=== PATIENT | male | born 1955 | race Caucasian/White ===

== ENCOUNTER 2018-01-21 15:45 | Inpatient (IN) | payer MEDICARE ==
[2018-01-21 16:20] LABS: #Basophils 0.1 thou/uL (0.0-0.2); #Lymphocytes 1.6 thou/uL (1.20-3.40); #Monocytes 1.5 thou/uL (0.11-0.59); #Neutrophils 9.5 thou/uL (1.40-6.50); %Basophils 0.4 % (0.0-1.0); %Eosinophils 0.1 % (0.0-10.0); %Lymphocytes 12.6 % (21.0-51.0); %Neutrophils 74.9 % (42.0-75.0); Hemoglobin 13.8 g/dL (14.0-18.0); Mean Corpuscular HGB CONC 31.8 g/dL (32.0-36.0); Mean Corpuscular Hemoglobin 31.7 pg (27.0-31.0); Mean Corpuscular Volume 99.6 fL (78.0-98.0); Mean Platelet Volume 9.2 fL (7.4-10.4); Platelet Count 116 thou/uL (130-400); RBC Distribution Width 14.3 % (11.5-14.5); Red Blood Cell (RBC) Count 4.36 mill/uL (4.70-6.10); White Blood Cell (WBC) Count 12.7 thou/uL (4.8-10.8)
[2018-01-21 16:33] LABS: PLT Morphology Comment Appears Decreased; RBC Morphology Normal
[2018-01-21 16:42] LABS: ALT (SGPT) 44 U/L (8-55); AST (SGOT) 49 U/L (5-34); Albumin 3.3 g/dL (3.4-4.8); Alkaline Phosphatase 69 U/L (40-150); Anion Gap 10 mmol/L (10-20); BUN (Urea Nitrogen) 14 mg/dL (8.4-25.7); Bilirubin, Total 1.6 mg/dL (0.2-1.2); CK (CPK) 42 U/L (30-200); Calc. Creatinine Clearance 0 mL/min (70-130); Calcium 8.9 mg/dL (7.8-10.44); Carbon Dioxide 23 mmol/L (23-31); Chloride 105 mmol/L (98-107); Estimated GFR-MDRD Greater than 90; Globulin 3.7 g/dL (2.4-3.5); Glucose 96 mg/dL (80-115); Potassium 3.6 mmol/L (3.5-5.1); Sodium 134 mmol/L (136-145)
[2018-01-21 16:47] LABS: CKMB 1.8 ng/mL (0-6.6); Troponin I 0.084 ng/mL (< 0.028)
[2018-01-21] MEDS ORDERED: Enoxaparin Sodium 80 MG/0.8 ML SYRINGE ONE (17:18)
[2018-01-21] MEDS ORDERED: Furosemide 40 MG/4 ML VIAL ONE (17:18)
--- NOTE | 2018-01-21 18:04 | RAD ---
CHEST TWO VIEWS: HISTORY: Pain. COMPARISON: None. FINDINGS: Atherosclerosis of the aorta. The pulmonary vessels are normal. There are diffuse interstitial opac ities. Small bilateral effusions. No pneumothorax or osseous abnormalities. IMPRESSION: 1. Interstitial opacities due to edema or infiltrate. 2. Small bilateral effusions. POS: [facility]
[2018-01-21 20:14] LABS: Troponin I 0.073 ng/mL (< 0.028)
[2018-01-21 22:55] LABS: Troponin I 0.062 ng/mL (< 0.028)
[2018-01-22] MEDS ORDERED: Nitroglycerin 0.4 MG TAB (25 Tab Bottle) PO PRN (10:50)
[2018-01-22] MEDS ORDERED: Senokot 8.6 MG TAB PO PRN (10:50)
[2018-01-22] MEDS ORDERED: Mag-Al 1200 mg/1200 mg/30 ML UDCUP PO PRN (10:50)
[2018-01-22] MEDS ORDERED: Calcium Carbonate 500 MG ChewTAB PO PRN (10:50)
[2018-01-22 10:53] LABS: #Basophils 0.1 thou/uL (0.0-0.2); #Lymphocytes 1.5 thou/uL (1.20-3.40); #Monocytes 1.3 thou/uL (0.11-0.59); #Neutrophils 7.5 thou/uL (1.40-6.50); %Basophils 0.7 % (0.0-1.0); %Eosinophils 0.2 % (0.0-10.0); %Lymphocytes 14.5 % (21.0-51.0); %Monocytes 12.3 % (0.0-10.0); %Neutrophils 72.3 % (42.0-75.0); Hemoglobin 15.1 g/dL (14.0-18.0); Mean Corpuscular HGB CONC 32.3 g/dL (32.0-36.0); Mean Corpuscular Hemoglobin 32.3 pg (27.0-31.0); Mean Platelet Volume 9.5 fL (7.4-10.4); Platelet Count 134 thou/uL (130-400); RBC Distribution Width 13.9 % (11.5-14.5); Red Blood Cell (RBC) Count 4.67 mill/uL (4.70-6.10); White Blood Cell (WBC) Count 10.4 thou/uL (4.8-10.8)
[2018-01-22] MEDS ORDERED: cloNIDine 0.1 MG TAB PO PRN (10:53)
[2018-01-22] MEDS ORDERED: cefTRIAXone\\ROCEPHIN 2 GM in Sodium Chloride 0.9% 100 ML IVPB SCH (11:00)
[2018-01-22] MEDS ORDERED: Clopidogrel Bisulfate 75 MG TAB PO SCH (11:00)
[2018-01-22] MEDS ORDERED: Aspirin 81 mg Enteric Coated Tablet PO SCH (11:00)
[2018-01-22 11:08] LABS: ALT (SGPT) 40 U/L (8-55); AST (SGOT) 43 U/L (5-34); Albumin 3.4 g/dL (3.4-4.8); Alkaline Phosphatase 72 U/L (40-150); Anion Gap 12 mmol/L (10-20); BUN (Urea Nitrogen) 17 mg/dL (8.4-25.7); Bilirubin, Total 1.9 mg/dL (0.2-1.2); Calc. Creatinine Clearance 108 mL/min (70-130); Carbon Dioxide 25 mmol/L (23-31); Chloride 104 mmol/L (98-107); Estimated GFR-MDRD Greater than 90; Glucose 97 mg/dL (80-115); Magnesium 1.9 mg/dL (1.6-2.6); Potassium 4.3 mmol/L (3.5-5.1); Protein, Total 7.4 g/dL (5.8-8.1); Sodium 137 mmol/L (136-145)
--- NOTE | 2018-01-22 11:12 | HP ---
DATE OF ADMISSION: 01/22/2018 PRIMARY CARE PHYSICIAN: [facility] in [place]. PRIMARY BINDING PRINTER: None. CHIEF COMPLAINT: Chest discomfort. HISTORY OF PRESENT ILLNESS: Patient is a 62-year-old male with coronary artery disease, status post VA in 2013, presented to the emergency room with chest discomfort that started yesterday while he was at home. Please note that patient is a poor historian and history was obtained from the sister, Tory talley, over the phone. The pain was pressure-like, 5/10, located in the left upper chest. No aggravati ng or relieving factor reported. He was also found to have fever of 101 along with fever and product noemi cough for the last week or so. His EKG showed sinus rhythm with some nonspecific ST-T-wave ortez es in the lateral leads. He received 1 mg/kg of Lovenox and Lasix in the emergency room. He also re ceived aspirin prior to ER arrival. PAST MEDICAL HISTORY: 1. Coronary artery disease, status post VA in 2013. He was incarcerated at that time. He had a car diac catheterization with questionable stent placement at [facility]. He also had a TIA during the above e pisode per sister. 2. Anxiety, depression, panic attacks. PAST SURGICAL HISTORY: 1. Right shoulder surgery. 2. Cardiac catheterization. ALLERGIES: No known drug allergies. CURRENT HOME MEDICATIONS: Plavix 75 mg daily; lisinopril daily, dose of lisinopril unclear. Family to bring the accurate list of medication. FAMILY HISTORY: Positive for premature coronary artery disease. Father had bypass in his 50s. SOCIAL HISTORY: He chews tobacco. He quit drinking. He lives at home with his sister. He was rele ased from the senior living 2 years ago. He had an VA in 2013 while he was incarcerated. REVIEW OF SYSTEMS: Cannot be reliably obtained from the patient due to current cognitive status. PHYSICAL EXAMINATION: VITAL SIGNS: In the emergency room, temperature 100.2, respirations 23, pulse rate of 62, blood pres sure of 119/73 with O2 saturation 94% on room air. GENERAL: This is a 62-year-old male in no apparent distress. HEENT: Head atraumatic and normocephalic. Sclerae are anicteric. Moist mucous membranes. NECK: Supple, no JVD, no carotid bruit. LUNGS: Showed scattered rales at bases. No wheezing or rhonchi. Lungs were symmetrical. HEART: S1 and S2 present. Regular rate and rhythm. No murmur, rubs, or gallops appreciated. ABDOMEN: Soft, nontender, bowel sounds present. EXTREMITIES: No edema or calf tenderness. NEUROLOGIC: At baseline. Power was 5/5 in all extremities. Neurological examination is grossly non focal. PSYCHIATRY: The patient is alert and awake; however, has cognitive issues as discussed above. SKIN: Warm and dry. LYMPH NODES: No palpable lymph nodes in the neck. PERIPHERAL VASCULAR: Radial pulses palpable bilaterally. MUSCULOSKELETAL: No joint swelling or tenderness. LABORATORY FINDINGS: WBC 12.7 with hemoglobin 13.8, hematocrit 43.5, platelets 116, lymphocyte of 12 .6, monocyte of 12. Chemistries showed sodium 134, potassium 3.6, chloride 105, bicarbonate 23, BUN 14, creatinine 0.67, glucose of 96, total bilirubin 1.6, AST 49, ALT 44, alkaline phosphatase 69. Tr oponins in the indeterminate range at 0.084 with normal CK-MB. BNP 2166. Albumin 3.3. Chest x-ray, by my review, showed questionable infiltrate at bilateral bases with small bilateral effusion. EKG, by my review, as discussed above. IMPRESSION: 1. Chest discomfort, multifactorial. 2. Sepsis, probably secondary to community-acquired pneumonia. 3. Coronary artery disease, status post cardiac catheterization in 2013 at [facility]. It is unclear whet her he had stent placement over there. 4. Anxiety, depression, and panic attacks. 5. Elevated troponins in the indeterminate range, probably secondary to congestive heart failure. 6. Congestive heart failure. 7. Abnormal liver function tests of unclear etiology, possibilities include passive hepatic congesti on versus due to alcoholism in the past. 8. Hyponatremia. 9. Mild anemia, probably chronic. 10. Thrombocytopenia. PLAN: The patient will be monitored on the telemetry unit. Echocardiogram will be obtained. We liz l continue Plavix with low-dose of aspirin. We will try to obtain records from [facility]. Blood cultures will be done. We will start him on empiric antibiotics. We will repeat chest x-ray in a.m. The yanelis graham is currently n.p.o. for Cardiology consultation. Plan of care was discussed with the patient and the sister over the phone.
[2018-01-22] MEDS: Doxycycline 100 MG CAP PO SCH ×2 (11:40→20:12)
[2018-01-22] MEDS: Acetaminophen 325 MG TAB PO PRN (11:47)
[2018-01-22 13:13] LABS: Lactic Acid 1.3 mmol/L (0.5-2.2)
[2018-01-22] MEDS ORDERED: Communication Order-Pharmacy FS SCH (13:15)
[2018-01-22 13:16] LABS: INR-International Normal Ratio 1.2; PTT 30.8 SEC (22.9-36.1)
[2018-01-22] MEDS ORDERED: Lidocaine 1% (PF) 30 ML VIAL ONE (13:19)
[2018-01-22] MEDS ORDERED: Fentanyl 100 MCG/2 ML VIAL ONE (13:31)
[2018-01-22] MEDS ORDERED: Midazolam HCl 2 mg/2 ml Vial ONE (13:31)
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
[2018-01-22] MEDS ORDERED: Nitroglycerin 0.4 MG TAB (25 Tab Bottle) SL PRN (14:27)
[2018-01-22] MEDS ORDERED: Acetaminophen/Codeine 30-300mg Tablet PO PRN ×2 (14:27)
[2018-01-22] MEDS ORDERED: traMADol HCl 50 MG TAB PO PRN (14:27)
[2018-01-22] MEDS ORDERED: Sodium Chloride 0.9% 200 ML IV PRN (14:30)
[2018-01-22] MEDS ORDERED: Iopamidol 370 76% 100 ML VIAL ONE (15:12)
[2018-01-22 17:52] LABS: Bilirubin Small (Negative); Blood, Urine Negative (Negative); Clarity CLEAR (Clear); Glucose, Urine (Dipstick) Negative (Negative); Leukocyte Trace (Negative); Nitrite Negative (Negative); Protein, Urine (Dipstick) Trace mg/dL (Neg-Trace)
[2018-01-22 17:54] LABS: Bacteria/HPF None Seen HPF (None Seen); Hyaline Casts/LPF 0-3 HYALINE CAST LPF (0-3 Hyaline); Squamous Epithelial 0-3 HPF (0-3); WBC/HPF 0-3 HPF (0-3)
[2018-01-22 17:58] LABS: Specific Gravity, Urine 1.052 (1.002-1.036)
[2018-01-22] MEDS: Carvedilol 3.125 MG TAB PO SCH (18:56)
[2018-01-22] MEDS: Famotidine 20 MG TAB PO SCH (20:12)
[2018-01-22] MEDS: Docusate 100 MG CAP PO SCH (20:12)
[2018-01-22] MEDS: Lisinopril 5 MG TAB PO SCH (20:13)
[2018-01-22] MEDS ORDERED: Furosemide 40 MG/4 ML VIAL ONE ×2 (22:23→22:51)
[2018-01-22] MEDS ORDERED: Nitroglycerin 2% Ointment 1 INCH/1 GM Packet ONE (22:25)
[2018-01-22] MEDS ORDERED: Morphine 2 MG/ML SYRINGE SLOW IVP SCH ×2 (22:30→22:45)
[2018-01-22] MEDS ORDERED: Nitroglycerin 50 MG/250 ML BOT 250 ML ONE (22:34)
[2018-01-22 22:55] LABS: Actual Bicarbonate (HCO3a) 18.4 mEq/L (22-28); Base Excess (BEa) -8.6 mEq/L (-2.0 to +3.0); CO2 Tension 43.5 mmHg (35.0-45.0); Calcium, Ionized 1.17 mmol/L (1.12-1.30); Hemoglobin (Hb) 15.9 g/dL (14.0-18.0); O2 Tension (PaO2) 82.4 mmHg (> 80.0); Potassium - ABG Lab 4.31 mmol/L (3.70-5.30)
[2018-01-22 22:58] LABS: Puncture Site RRA; pH, Arterial 7.25 (7.35-7.45)
--- NOTE | 2018-01-22 22:58 | RAD ---
RADIOGRAPH CHEST 1 VIEW: Date: 01/22/18 Time: 10:47 p.m. HISTORY: 62-year-old male with "flash pulmonary edema." COMPARISON: 01/21/18, 4:17 p.m. FINDINGS: The previously demonstrated bilateral pulmonary interstitial densities have become more dense, and ar e now alveolar densities involving the upper and lower lobes. There is sparing of the peripheries of the lungs. There is no cardiomegaly. No pneumothorax. IMPRESSION: Interval worsening of pulmonary interstitial edema, now noncardiogenic pulmonary alveolar edema. JN [] POS: [facility]
[2018-01-22 22:59] LABS: ALV-art Gradient 576.225 (0-20)
[2018-01-22] MEDS ORDERED: Furosemide 40 MG/4 ML VIAL SLOW IVP SCH (23:00)
[2018-01-22] MEDS ORDERED: Amiodarone HCl 450 MG, Admixture Fee 1 EACH in Dextrose 5% in Water 250 ML IVPB SCH (23:15)
[2018-01-22] MEDS ORDERED: Propofol 1,000 MG/100 ML VIAL IV ONE (23:23)
[2018-01-22] MEDS ORDERED: Amiodarone HCl 150 MG, Admixture Fee 1 EACH in Dextrose 5% in Water 100 ML IVPB SCH (23:30)
[2018-01-22] MEDS: Midazolam HCl 2 mg/2 ml Vial ONE ×3 (23:35→23:37)
--- NOTE | 2018-01-22 23:35 | PDOC.EVN ---
Event Note - Event Note Event Note: code green activated, since pt was found in severe respiratory distress, possible flash pulmonary edema, pt has very depressed LVF=15%, treated with lasix, nitro drip, morphine, bipap. pt continued to deteriorate with worsening mental status, decision for intubation was done, case discussed with Dr Vale and Dr Childress, we will follow rec's. possible flutter present on ekg will add amio . Please see code sheet for details. questionable for underlying infection in the cxr, pt, will continue coverage empirically for now, procalcitonin ordered.
[2018-01-22] MEDS ORDERED: Vecuronium 10 MG VIAL ONE ×2 (23:44→23:47)
[2018-01-23 00:10] LABS: Actual Bicarbonate (HCO3a) 20.7 mEq/L (22-28); Calcium, Ionized 1.14 mmol/L (1.12-1.30); Carboxyhemoglobin (COHb) 1.3 gm% (0.0-3.0); Hemoglobin (Hb) 15.7 g/dL (14.0-18.0); O2 Tension (PaO2) 63.4 mmHg (> 80.0); Potassium - ABG Lab 3.98 mmol/L (3.70-5.30); pH, Arterial 7.28 (7.35-7.45)
--- NOTE | 2018-01-23 00:22 | PDOC.EVN ---
Event Note - Event Note Event Note: cxr reviewed central line will need repositioning. ET/OGT in right position, pt with significant pulmonary edema developed high grade fever>102, likely a component of non cardiogenic pulmonary edema from pna on top of known severely depressed LVF, HR has come down after sedation, sinus tachy likely due to sepsis , will hold on amio for now.
[2018-01-23 00:37] LABS: #Basophils 0.1 thou/uL (0.0-0.2); #Eosinphils 0.1 thou/uL (0.0-0.7); #Lymphocytes 2.3 thou/uL (1.20-3.40); #Monocytes 1.8 thou/uL (0.11-0.59); #Neutrophils 12.6 thou/uL (1.40-6.50); %Basophils 0.4 % (0.0-1.0); %Eosinophils 0.5 % (0.0-10.0); %Lymphocytes 13.6 % (21.0-51.0); %Monocytes 10.6 % (0.0-10.0); %Neutrophils 74.9 % (42.0-75.0); Hemoglobin 16.1 g/dL (14.0-18.0); Mean Corpuscular HGB CONC 32.2 g/dL (32.0-36.0); Mean Corpuscular Hemoglobin 32.9 pg (27.0-31.0); Platelet Count 211 thou/uL (130-400); RBC Distribution Width 14.4 % (11.5-14.5); White Blood Cell (WBC) Count 16.8 thou/uL (4.8-10.8)
[2018-01-23] MEDS ORDERED: Vancomycin HCl 1.5 GM in Sodium Chloride 0.9% 250 ML 300 ML IVPB SCH (00:45)
[2018-01-23] MEDS ORDERED: Sodium Chloride 0.9% 1,000 ML IV SCH (00:45)
[2018-01-23] MEDS: Piperacillin/Tazobactam 3.375 GM in Sodium Chloride 0.9% 100 ML IVPB SCH ×5 (00:46→23:42)
[2018-01-23 00:49] LABS: Anion Gap 15 mmol/L (10-20); BUN (Urea Nitrogen) 18 mg/dL (8.4-25.7); Calc. Creatinine Clearance 106 mL/min (70-130); Calcium 9.1 mg/dL (7.8-10.44); Carbon Dioxide 20 mmol/L (23-31); Chloride 105 mmol/L (98-107); Estimated GFR-MDRD Greater than 90; Glucose 95 mg/dL (80-115); Potassium 4.1 mmol/L (3.5-5.1); Sodium 136 mmol/L (136-145)
[2018-01-23] MEDS ORDERED: Fentanyl BOLUS 250 ML IVPB PRN (03:51)
[2018-01-23] MEDS ORDERED: fentaNYL Citrate/PF 2,000 MCG in Sodium Chloride 0.9% 60 ML IV SCH (03:51)
[2018-01-23] MEDS ORDERED: DISCONTINUE PREVIOUS NARCOTIC PAIN MEDICATIONS AND BENZODIAZEPINES FS SCH (03:51)
[2018-01-23] MEDS ORDERED: Lorazepam 2 MG/ML VIAL SLOW IVP PRN (03:51)
[2018-01-23] MEDS ORDERED: Propofol BOLUS 1,000 MG/100 ML VIAL IV PRN (03:51)
[2018-01-23] MEDS ORDERED: Propofol 1,000 MG/100 ML VIAL IV PRN (03:51)
[2018-01-23 04:03] LABS: #Monocytes 1.5 thou/uL (0.11-0.59); #Neutrophils 14.8 thou/uL (1.40-6.50); %Basophils 0.2 % (0.0-1.0); %Eosinophils 0.1 % (0.0-10.0); %Lymphocytes 5.8 % (21.0-51.0); %Monocytes 8.8 % (0.0-10.0); %Neutrophils 85.1 % (42.0-75.0); Hemoglobin 13.7 g/dL (14.0-18.0); Mean Corpuscular HGB CONC 32.3 g/dL (32.0-36.0); Mean Corpuscular Hemoglobin 32.2 pg (27.0-31.0); Mean Corpuscular Volume 99.9 fL (78.0-98.0); Mean Platelet Volume 9.9 fL (7.4-10.4); Platelet Count 158 thou/uL (130-400); RBC Distribution Width 13.9 % (11.5-14.5); Red Blood Cell (RBC) Count 4.26 mill/uL (4.70-6.10); White Blood Cell (WBC) Count 17.4 thou/uL (4.8-10.8)
[2018-01-23 04:25] LABS: ALT (SGPT) 32 U/L (8-55); AST (SGOT) 47 U/L (5-34); Albumin 2.9 g/dL (3.4-4.8); Alkaline Phosphatase 59 U/L (40-150); Anion Gap 12 mmol/L (10-20); BUN (Urea Nitrogen) 21 mg/dL (8.4-25.7); Bilirubin, Total 1.7 mg/dL (0.2-1.2); Calc. Creatinine Clearance 104 mL/min (70-130); Calcium 8.3 mg/dL (7.8-10.44); Carbon Dioxide 22 mmol/L (23-31); Chloride 105 mmol/L (98-107); Estimated GFR-MDRD Greater than 90; Globulin 3.4 g/dL (2.4-3.5); Glucose 96 mg/dL (80-115); Magnesium 1.4 mg/dL (1.6-2.6); Potassium 3.5 mmol/L (3.5-5.1); Protein, Total 6.3 g/dL (5.8-8.1); Sodium 135 mmol/L (136-145)
[2018-01-23 06:14] LABS: Lactic Acid 1.2 mmol/L (0.5-2.2)
[2018-01-23 06:33] LABS: Actual Bicarbonate (HCO3a) 19.6 mEq/L (22-28); Base Excess (BEa) -3.7 mEq/L (-2.0 to +3.0); CO2 Tension 30.7 mmHg (35.0-45.0); Calcium, Ionized 1.12 mmol/L (1.12-1.30); Hemoglobin (Hb) 13.9 g/dL (14.0-18.0); O2 Tension (PaO2) 94.6 mmHg (> 80.0); Potassium - ABG Lab 3.43 mmol/L (3.70-5.30); pH, Arterial 7.42 (7.35-7.45)
[2018-01-23 06:34] LABS: Puncture Site RRA
[2018-01-23 06:35] LABS: ALV-art Gradient 223.525 (0-20)
--- NOTE | 2018-01-23 07:20 | RAD ---
RADIOGRAPH CHEST 1 VIEW: Date: 01/22/18 Time: 2358 HOURS HISTORY: 62-year-old male with flash pulmonary edema. Status post intubation. COMPARISON: 01/22/18 at 2247 hours. FINDINGS: There has been interval placement of an endotracheal tube, with distal tip at the upper-mid thoracic trachea, 6.5 cm superior to the walter. There has been interval placement of a left subclavian centra l venous catheter which ascends the left side of the neck, and the distal portion is outside of the f ield of view. This is a supine image, which would be insensitive for pneumothorax detection. The prev iously demonstrated bilateral centrally dominant air space densities consistent with pulmonary edema have become more dense now during the short interval. There is a new finding of consolidation of the retrocardiac portion of the left lower lobe, and indistinctness of the left hemidiaphragm. IMPRESSION: 1. Status post intubation with endotracheal tube. 2. Status post left subclavian central vascular catheter placement which ascends the left neck. 3. Interval worsening of noncardiogenic pulmonary alveolar edema. 4. Interval development of consolidation of left lower lobe. This could be part of the pulmonary jany ma, but other possibilities include left lower lobe atelectasis or aspiration. GIOVANNI [] POS: [facility]
--- NOTE | 2018-01-23 07:24 | PDOC.PULCN ---
Pulmonology Consult: HPI - Date of Consult Date: 01/23/18 Time: 07:00 - Consult Details Reason for Consult: Intubation Requesting Physician: Dr. Angel - History of Present Illness HPI: FLORINDA WEINSTEIN is a 62 year-old Male that was intubated due to suspected pulmonary edema. Patient is intubated and no family is available at time of interview. Patient was able to shake his head "yes" or "no" to questions. Patient states that he is not having chest pain currently. He denies any other pain symptoms. Patient states he was having trouble breathing last night. Patient states that he was able to get some rest. Patient's nurse states that when he is adequately sedated that he does well. Patient denies any other problems at this time. Pulmonology Consult: ROS - Review of Systems ROS unobtainable: due to endotracheal tube Constitutional: negative: fever, chills Cardiovascular: negative: chest pain, palpitations Respiratory: negative: no reported symptoms Pulmonology Consult: PMH Source: patient Past Medical History: PMH: CAD s/p PA 2013, TIA, Anxiety, Depression PSH: Right Shoulder Surgery, Cardiac Catheterization - Family History Pertinent family history: Father had PA and bypass surgery in 50s - Social History Smoking Status: Former smoker, Other (Chewing tobacco currently) Alcohol Use: none Drug Use History: none Living Situation: independent, with family/parents Pulmonology Consult: Meds - Medications MAR Reviewed: Yes Medications: Current Medications Acetaminophen (Tylenol) 325 mg PO Q6H PRN PRN Reason: Headache/Fever or Pain Last Admin: 01/22/18 11:47 Dose: 325 mg Al Hydroxide/Mg Hydroxide (Maalox) 30 ml PO Q6H PRN PRN Reason: Heartburn or Indigestion Aspirin (Ecotrin) 81 mg PO DAILY [facility] Calcium Carbonate (Tums) 1,000 mg PO Q4H PRN PRN Reason: Heartburn or Indigestion Carvedilol (Coreg) 3.125 mg PO BID-[facility] Last Admin: 01/22/18 18:56 Dose: 3.125 mg Clonidine (Catapres) 0.1 mg PO Q4H PRN PRN Reason: Systolic BP > 180 [facility] [place]ocus[place] Sodium (Colace) 100 mg PO BID [facility] Last Admin: 01/22/18 20:12 Dose: Not Given Doxycycline Hyclate (Vibramycin) 100 mg PO BID [facility] Last Admin: 01/22/18 20:12 Dose: 100 mg Famotidine (Pepcid) 20 mg PO BID [facility] Last Admin: 01/22/18 20:12 Dose: 20 mg Piperacillin Sod/Tazobactam (Sod 3.375 gm/ Sodium Chloride) 100 mls @ 200 mls/ hr IVPB Q6HR [facility] Last Admin: 01/23/18 05:43 Dose: 100 mls Sodium Chloride (Normal Saline 0.9%) 1,000 mls @ 75 mls/hr IV .[id number] [facility] Last Admin: 01/23/18 00:50 Dose: 1,000 mls Vancomycin HCl 1 gm/ Device 200 mls @ 200 mls/hr IVPB 0200,1000,1800 [facility] Fentanyl Citrate 2,000 mcg/ (Sodium Chloride) 100 mls @ 0 mls/hr IV INF [facility]; Protocol Stop: 02/22/18 03:51 Last Admin: 01/23/18 04:00 Dose: 100 mls Fentanyl Citrate (Fentanyl Bolus) 250 mls @ 0 mls/hr IVPB PRN PRN PRN Reason: Breakthrough pain/agitation Stop: 02/22/18 03:51 Lisinopril (Zestril) 5 mg PO BID [facility] Last Admin: 01/22/18 20:13 Dose: 5 mg Lorazepam (Ativan) 2 mg SLOW IVP Q1H PRN PRN Reason: Breakthrough agitation Stop: 02/22/18 03:51 Miscellaneous Medication (Pharmacy To Dose) 0 each IVPB PRN PRN PRN Reason: [facility] Pharmacy to Dose Morphine Sulfate (Morphine Sulfate) 2 mg SLOW IVP Q1H PRN PRN Reason: BREAKTHROUGH PAIN/AGITATION Stop: 02/22/18 03:51 Nitroglycerin (Nitrostat) 0.4 mg SL Q5MIN PRN PRN Reason: Chest Pain Discontinue Previous Narcotic Pain Medications And Benzodiazepines 1 each FS .ONE [facility] Stop: 02/22/18 03:51 Propofol (Diprivan) 1,000 mg IV INF PRN; Protocol PRN Reason: TO ACHIEVE GOAL RASS Stop: 02/22/18 03:51 Propofol (Diprivan Bolus) 20 mg IV Q5MIN PRN PRN Reason: BREAKTHROUGH AGITATION Stop: 02/22/18 03:51 Senna (Senokot) 2 tab PO HSPRN PRN PRN Reason: Constipation Sodium Chloride (Flush - Normal Saline) 10 ml IVF PRN PRN PRN Reason: Saline Flush - Allergies Allergies/Adverse Reactions: Allergies Allergy/AdvReac Type Severity Reaction Status Date / Time No Known Drug Allergies Allergy Verified 01/21/18 21:06 Pulmonology Consult: PE - Physical Exam Constitutional: NAD HEENT: PERRLA, moist MMs Deviation from normal: ET tube in place Neck: no nodes, no JVD Cardiovascular: RRR, no significant murmur Respiratory: clear to auscultation bilaterally. negative: prolonged expiratory phase, wheezes Gastrointestinal: soft, non-tender, no distention, positive bowel sounds Musculoskeletal: no edema, pulses present Neurological: non-focal, normal sensation, moves all 4 limbs Deviation from normal: Intubated Skin: no rash Pulmonology Consult: Results - Labs Result Diagrams: 01/23/18 03:20 01/23/18 15:27 - ABG Interpretation ABG Results: ABG pH 7.42 (7.35-7.45) 01/23/18 06:25 ABG pCO2 30.7 mmHg (35.0-45.0) L 01/23/18 06:25 ABG O2 Sat Calc/Kassidy 97.6 % (94.0-98.0) 01/23/18 06:25 ABG Base Excess -3.7 mEq/L (-2.0 to +3.0) L 01/23/18 06:25 Pulmonology Consult: A/P - Problem (1) CAD (coronary artery disease) Current Visit: Yes Code(s): I25.10 - ATHSCL HEART DISEASE OF [place] CORONARY ARTERY W/O ANG PCTRS Status: Chronic (2) CHF (congestive heart failure) Current Visit: Yes Code(s): I50.9 - HEART FAILURE, UNSPECIFIED Status: Chronic (3) Endotracheally intubated Current Visit: Yes Code(s): Z97.8 - PRESENCE OF OTHER SPECIFIED DEVICES Status: Acute (4) Anxiety Current Visit: Yes Code(s): F41.9 - ANXIETY DISORDER, UNSPECIFIED Status: Acute (5) Community acquired bacterial pneumonia Current Visit: Yes Code(s): J15.9 - UNSPECIFIED BACTERIAL PNEUMONIA Status: Acute - Time Time: 50% of the time was spent in coordination of care (as documented) at patient's floor/unit and/or counseling patient. Time with Patient: greater than 50 minutes - Plan Plan: 1. CAD - Previously stenting - s/p cardiac catheterization by Dr. Childress, stenosis present - Optimize medical management - Plavix and ASA 2. CHF -ECHO shows EF of 10-15% - Cardiology consulted - Coreg, Lisinopril, Lasix - 1400 ml output Garibay - Possible A-flutter, Amiodarone added 3. Intubation - Likely secondary to pulmonary edema due to Cardiac Etiology - Will work to wean off as tolerated 4. Anxiety - Lorazepam - CCU sedation at this time as well 5. Community Acquired Pneumonia - Continue Antibiotics Doxycycline, Vancomycin, Zosyn - Continue O2 supplementation as needed Disposition: Guarded, will continue current plan of care. Attempt to wean off ventilator as tolerated.
[2018-01-23] MEDS ORDERED: CCU Electrolyte Replacement 1 EACH FS ONE (07:38)
[2018-01-23] MEDS ORDERED: Spironolactone 25 MG TAB PO SCH (08:00)
[2018-01-23] MEDS ORDERED: Vancomycin HCl 1 GM in Premix Bag 1 BAG IVPB SCH ×2 (08:00→09:00)
[2018-01-23] MEDS: Carvedilol 3.125 MG TAB PO SCH (08:00)
[2018-01-23] MEDS ORDERED: Potassium Phosphate 9 MMOL in Sodium Chloride 0.9% 100 ML IVPB PRN (08:05)
[2018-01-23] MEDS ORDERED: Magnesium Oxide 400 MG TAB PO PRN ×2 (08:05)
[2018-01-23] MEDS ORDERED: Potassium Chloride 40 MEQ in Sodium Chloride 0.9% 250 ML 250 ML IVPB PRN (08:05)
[2018-01-23] MEDS ORDERED: Potassium Phosphate 15 MMOL in Sodium Chloride 0.9% 250 ML 250 ML IV PRN (08:05)
[2018-01-23] MEDS ORDERED: Potassium Chloride 20 MEQ TAB PO PRN (08:05)
[2018-01-23] MEDS ORDERED: Potassium Phosphate 12 MMOL in Sodium Chloride 0.9% 250 ML 250 ML IV PRN (08:05)
[2018-01-23] MEDS ORDERED: Magnesium 2 GM/NS 0.9% 100 ML 2 GM in Premix Bag 1 BAG IVPB PRN (08:05)
[2018-01-23] MEDS ORDERED: Potassium Chloride 40 MEQ in Premix Bag 1 BAG IVPB PRN (08:05)
--- NOTE | 2018-01-23 08:32 | CON ---
DATE OF CONSULTATION: 01/23/2018 This is 45 minutes of critical care time. HISTORY OF PRESENT ILLNESS: This is a 62-year-old male, who presented to the emergency room on 01/22 with chest discomfort. He was also found to have fever of about 101. He has a known history o f coronary artery disease. During this hospitalization, he has been seen by Dr. Childress from [facility]. An echocardiogram revealed EF of 10%-15%. Apparently, that is a new diagnosis of cardiomyopat hy. He underwent cardiac catheterization yesterday, which did not show significant coronary disease. Last night, he decompensated and was brought to the CCU. He was put on BiPAP. He failed and had t o be intubated by the ER staff. Central line was placed. He is now endotracheally intubated on [facility] anical ventilation. He will wake up and follow commands for me without limitation. PAST MEDICAL HISTORY: 1. Coronary artery disease with [place] in 2013. 2. Anxiety. 3. Depression. 4. Panic attacks. PAST SURGICAL HISTORY: 1. Right shoulder surgery. 2. Recent cardiac catheterization. ALLERGIES: None. MEDICATIONS PRIOR TO ADMISSION: Plavix and lisinopril. FAMILY MEDICAL HISTORY: Remarkable for coronary artery disease. SOCIAL HISTORY: Chews tobacco, apparently recently quit drinking. He was incarcerated until 2 years ago. REVIEW OF SYSTEMS: Could not be obtained, as he is currently on mechanical ventilation. CURRENT INPATIENT MEDICATIONS: These were reviewed; doses on chart. MEDICATIONS: Include Coreg, Plavix, Colace, tobramycin, Pepcid, fentanyl, propofol, Zestril, vancomy sindy. PHYSICAL EXAMINATION: VITAL SIGNS: Pulse 76, blood pressure is 90/60, O2 sat 100%, respiratory rate 20. He is currently o n a propofol drip at 5 mcg per kilogram per minute. Intake for the last several hours 1519 mL, outpu t 1805. Weight 160 pounds. GENERAL: The patient is awake, alert, follows commands for me, but is intubated. HEENT EXAM: Pupils react. Sclerae anicteric. Oropharynx: ET tube and OG tube in place. NECK: He has 6 cm JVD to the angle of his jaw. LUNGS: He has coarse crackles bilaterally. CARDIOVASCULAR: S1 and S2 regular, without murmur. ABDOMEN: Soft, nontender, no hepatosplenomegaly. EXTREMITIES: No clubbing, cyanosis, or edema. NEUROLOGIC EXAM: Grossly intact throughout. LABORATORY DATA: Sodium 135, potassium 3.5, chloride 105, CO2 of 22, BUN 21, creatinine 0.7, glucose 96, AST 47, ALT 32. C-reactive protein was 7.5, BNP 2166, albumin 2.9. ABG, pH 7.42, pCO2 of 31, P O2 of 94 that is on SIMV rate 22, tidal volume 500, PEEP 10, pressure support 10, FiO2 50%. INR 1.2. White blood cell count 17.4, hematocrit 42.6, platelet count 158. Urinalysis is negative. His chest x-ray shows bilateral pulmonary infiltrates in a bat wing distribution with sparing of the periphery. This would normally indicate congestive heart failure. He has endotracheal tube about 4 cm above the walter. He has a central line in left subclavian that is turned up into his left IJ. ASSESSMENT: 1. Acute respiratory failure, requiring mechanical ventilation. 2. Cardiogenic pulmonary edema. 3. Low ejection - 10%-15% with acute systolic heart failure. 4. Possible concurrent pneumonia versus sepsis. 5. Hypokalemia. PLAN: 1. The patient will be started on dobutamine drip. If his pressure drops, I may have to add some do pamine or consider holding the Coreg and lisinopril. 2. Agree with the antibiotics. 3. Hold IV fluids. 4. Try to gently diurese. 5. I have adjusted mechanical ventilation settings. 6. Check potassium level later today. Consider supplementation with electrolyte protocol as needed. 7. Update family when they arrive.
[2018-01-23] MEDS: DOBUTamine 500 mg/250 ml 250 ML IVPB SCH (08:44)
[2018-01-23] MEDS: Furosemide 40 MG/4 ML VIAL SLOW IVP SCH ×2 (08:45→20:17)
--- NOTE | 2018-01-23 08:45 | ULT ---
RIGHT UPPER QUADARNT ULTRASOUND: DATE: 01/23/18. HISTORY: Abnormal liver function tests and fever. FINDINGS: The gallbladder is distended measuring 10.6 cm in length x 5 cm in diameter. There is an echogenic f ocus seen in the dependent portion of the gallbladder lumen with a question of posterior shadowing an d this may represent a small gallbladder calculus. There is no gallbladder wall thickening or perich olecystic fluid. The common duct measures approximately 0.5 cm in diameter. The liver, visualized portions of the pancreas, visualized portions of the IVC, and right kidney demo nstrate a normal sonographic appearance. The right kidney measures 11.2 cm in length. There is a small to moderate-sized right pleural effusion noted. IMPRESSION: 1. Cholelithiasis with distention of the gallbladder. There is no gallbladder wall thickening or pe richolecystic fluid. 2. Common duct is normal in caliber. 3. Right pleural effusion. POS: [facility]
[2018-01-23] MEDS: Enoxaparin Sodium 40 MG/0.4 ML SYRINGE SC SCH (09:23)
[2018-01-23] MEDS: Famotidine 20 MG TAB PO SCH ×2 (09:24→20:16)
[2018-01-23] MEDS: Doxycycline 100 MG CAP PO SCH ×3 (09:24→20:16)
[2018-01-23] MEDS: Docusate 100 MG CAP PO SCH ×2 (09:25→20:16)
[2018-01-23] MEDS: Clopidogrel Bisulfate 75 MG TAB PO SCH (09:25)
[2018-01-23] MEDS: Aspirin 81 mg Enteric Coated Tablet PO SCH (09:26)
[2018-01-23] MEDS: Potassium Chloride 20 MEQ in Premix Bag 1 BAG IVPB SCH ×2 (09:54→13:36)
[2018-01-23] MEDS: Vancomycin HCl 1 GM in Premix Bag 1 BAG IVPB SCH ×2 (09:55→18:27)
--- NOTE | 2018-01-23 12:27 | PDOC.PN ---
- Subjective Encounter Start Date: 01/23/18 Encounter Start Time: 12:26 Subjective: intubated and sedated in CCU. -: Code loreta called last night for severe respiratory distress refractory to -: Bipap. - Objective Resuscitation Status: Resuscitation Status FULL:Full Resuscitation MAR Reviewed: Yes Vital Signs & Weight: Vital Signs (12 hours) Temp Pulse Resp BP 01/23/18 10:18 88 113/76 01/23/18 07:00 99.7 F H 01/23/18 06:22 71 91/68 01/23/18 06:00 20 01/23/18 04:00 99.4 F 26 H 01/23/18 02:00 30 H Weight Admit Weight 161 lb 1.821 oz Weight 162 lb 11.218 oz Most Recent Monitor Data Heart Rate from ECG 73 NIBP 93/57 NIBP BP-Mean 69 Respiration from ECG 19 SpO2 100 I&O: 01/22/18 01/23/18 01/24/18 06:59 06:59 06:59 Intake Total 0 1519 410 Output Total 1805 910 Balance 0 -286 -500 Result Diagrams: 01/26/18 04:20 01/26/18 04:20 Additional Labs: Microbiology 01/22/18 12:41 Venous blood - Right Hand Blood Culture - Preliminary Specimen has been received and culture in progress. No Growth to date. 01/22/18 12:32 Venous blood - Left Arm Blood Culture - Preliminary Specimen has been received and culture in progress. No Growth to date. Laboratory Tests 01/21/18 01/22/18 01/22/18 16:05 10:41 22:26 Magnesium Total Bilirubin AST C-Reactive Protein B-Natriuretic Peptide 2166.0 H Lipase 13 Procalcitonin 0.37 01/23/18 01/23/18 03:20 03:20 Magnesium 1.4 L Total Bilirubin 1.7 H AST 47 H C-Reactive Protein 7.59 H B-Natriuretic Peptide Lipase Procalcitonin Phys Exam - Physical Examination Constitutional: NAD intubated.opens eyes on verbal stimulus HEENT: PERRLA, moist MMs, sclera anicteric ETT Neck: no JVD Respiratory: no wheezing, no rhonchi, clear to auscultation bilateral Cardiovascular: RRR, no significant murmur Gastrointestinal: soft, no distention, positive bowel sounds Musculoskeletal: no edema, pulses present Neurological: moves all 4 limbs Skin: no rash Dx/Plan (1) Acute hypoxemic respiratory failure Code(s): J96.01 - ACUTE RESPIRATORY FAILURE WITH HYPOXIA Status: Acute Comment: Extubated 01/24 (2) Acute systolic CHF (congestive heart failure) Code(s): I50.21 - ACUTE SYSTOLIC (CONGESTIVE) HEART FAILURE Status: Acute Comment: EF 10-15%.improving.on Diuretics (3) PNA (pneumonia) Code(s): J18.9 - PNEUMONIA, UNSPECIFIED ORGANISM Status: Acute (4) Sepsis Code(s): A41.9 - SEPSIS, UNSPECIFIED ORGANISM Status: Acute (5) Hypomagnesemia Code(s): E83.42 - HYPOMAGNESEMIA Status: Acute (6) Cholelithiases Code(s): K80.20 - CALCULUS OF GALLBLADDER W/O CHOLECYSTITIS W/O OBSTRUCTION Status: Chronic Qualifiers: Cholelithiasis location: gallbladder Cholecystitis presence: without cholecystitis Biliary obstruction: without biliary obstruction Qualified Code(s): K80.20 - Calculus of gallbladder without cholecystitis without obstruction (7) Cardiomyopathy Code(s): I42.9 - CARDIOMYOPATHY, UNSPECIFIED Status: Chronic Qualifiers: Cardiomyopathy type: unspecified Qualified Code(s): I42.9 - Cardiomyopathy , unspecified Comment: Mamadou kyle need lifevest prior to DC (8) CAD (coronary artery disease) Code(s): I25.10 - ATHSCL HEART DISEASE OF [place] CORONARY ARTERY W/O ANG PCTRS Status: Chronic (9) H/O traumatic brain injury Code(s): Z87.820 - PERSONAL HISTORY OF TRAUMATIC BRAIN INJURY Status: Chronic - Plan continue antibiotics, respiratory therapy, DVT proph w/SCDs cont vent support.Cont diuresis.cont JUDE-I,plavix,aldactone -: empiric ABx. follow Cx results -: replace magnesium. CCu lyte protocol -: Will anabella need repeat Cath with or without AICD/lifevest -: am labs.Critically ill.cont dobutamine drip for anabella cardiogenic shock * . Review of Systems - Review of Systems Other: can not be obtained due to sedated status - Medications/Allergies Allergies/Adverse Reactions: Allergies Allergy/AdvReac Type Severity Reaction Status Date / Time No Known Drug Allergies Allergy Verified 01/21/18 21:06 Medications: Current Medications Acetaminophen (Tylenol) 325 mg PO Q6H PRN PRN Reason: Headache/Fever or Pain Last Admin: 01/22/18 11:47 Dose: 325 mg Al Hydroxide/Mg Hydroxide (Maalox) 30 ml PO Q6H PRN PRN Reason: Heartburn or Indigestion Aspirin (Ecotrin) 81 mg PO DAILY [facility] Last Admin: 01/23/18 09:26 Dose: 81 mg Calcium Carbonate (Tums) 1,000 mg PO Q4H PRN PRN Reason: Heartburn or Indigestion Clonidine (Catapres) 0.1 mg PO Q4H PRN PRN Reason: Systolic BP > 180 Clopidogrel Bisulfate (Plavix) 75 mg PO QAM [facility] Last Admin: 01/23/18 09:25 Dose: 75 mg Docusate Sodium (Colace) 100 mg PO BID [facility] Last Admin: 01/23/18 09:25 Dose: 100 mg Doxycycline Hyclate (Vibramycin) 100 mg PO BID [facility] Last Admin: 01/23/18 09:26 Dose: 100 mg Enoxaparin Sodium (Lovenox) 40 mg SC 09 [facility] Last Admin: 01/23/18 09:23 Dose: 40 mg Famotidine (Pepcid) 20 mg PO BID [facility] Last Admin: 01/23/18 09:24 Dose: 20 mg Furosemide (Lasix) 40 mg SLOW IVP BID [facility] Last Admin: 01/23/18 08:45 Dose: 40 mg Piperacillin Sod/Tazobactam (Sod 3.375 gm/ Sodium Chloride) 100 mls @ 200 mls/ hr IVPB Q6HR [facility] Last Admin: 01/23/18 05:43 Dose: 100 mls Vancomycin HCl 1 gm/ Device 200 mls @ 200 mls/hr IVPB 0200,1000,1800 [facility] Last Admin: 01/23/18 09:55 Dose: 200 mls Fentanyl Citrate 2,000 mcg/ (Sodium Chloride) 100 mls @ 0 mls/hr IV INF [facility]; Protocol Stop: 02/22/18 03:51 Last Admin: 01/23/18 04:00 Dose: 100 mls Fentanyl Citrate (Fentanyl Bolus) 250 mls @ 0 mls/hr IVPB PRN PRN PRN Reason: Breakthrough pain/agitation Stop: 02/22/18 03:51 Dobutamine HCl/Dextrose (Dobutamine 500 Mg/250 Ml) 250 mls @ 5.535 mls/hr IVPB INF [facility]; Protocol Last Admin: 01/23/18 08:44 Dose: 250 mls Potassium Chloride 40 meq/ (Sodium Chloride) 270 mls @ 135 mls/hr IVPB ASDIR PRN PRN Reason: FOR SERUM K+ 2.5 - 3.5 Potassium Chloride 40 meq/ (Device) 100 mls @ 50 mls/hr IVPB ASDIR PRN PRN Reason: FOR SERUM K+ 2.5 - 3.5 Magnesium Sulfate 1 gm/ Sodium (Chloride) 102 mls @ 102 mls/hr IV PRN PRN PRN Reason: MAG LEVEL 1.4 - 2.0 Last Admin: 01/23/18 10:51 Dose: 102 mls Magnesium Sulfate 2 gm/ Device 100 mls @ 100 mls/hr IVPB ASDIR PRN PRN Reason: MAGNESIUM < 1.4 Potassium Phosphate 9 mmol/ (Sodium Chloride) 103 mls @ 25.75 mls/hr IVPB ASDIR PRN PRN Reason: Phosphate 1.0-1.8 Potassium Phosphate 12 mmol/ (Sodium Chloride) 254 mls @ 63.5 mls/hr IV ASDIR PRN PRN Reason: Serum phosphate 0.5-0.9 Potassium Phosphate 15 mmol/ (Sodium Chloride) 255 mls @ 63.75 mls/hr IV ASDIR PRN PRN Reason: Serum Phos < 0.5 Potassium Chloride 20 meq/ (Device) 100 mls @ 50 mls/hr IVPB 1000,1200 [facility] Stop: 01/23/18 14:00 Last Admin: 01/23/18 09:54 Dose: 100 mls Lisinopril (Zestril) 5 mg PO BID [facility] Lorazepam (Ativan) 2 mg SLOW IVP Q1H PRN PRN Reason: Breakthrough agitation Stop: 02/22/18 03:51 Magnesium Oxide (Magnesium Oxide) 400 mg PO BIDPRN PRN PRN Reason: FOR SERUM MAG 1.4 - 2.0 Magnesium Oxide (Magnesium Oxide) 800 mg PO PRN PRN PRN Reason: FOR SERUM MAG < 1.4 Miscellaneous Medication (Pharmacy To Dose) 0 each IVPB PRN PRN PRN Reason: [facility] Pharmacy to Dose Miscellaneous Medication (Phos-Nak) 1 pkt PO TIDPRN PRN PRN Reason: FOR PHOS LEVEL 1.0 - 1.8 Miscellaneous Medication (Phos-Nak) 2 pkt PO TIDPRN PRN PRN Reason: FOR PHOS LEVEL 0.5 - 1.0 Morphine Sulfate (Morphine Sulfate) 2 mg SLOW IVP Q1H PRN PRN Reason: BREAKTHROUGH PAIN/AGITATION Stop: 02/22/18 03:51 Nitroglycerin (Nitrostat) 0.4 mg SL Q5MIN PRN PRN Reason: Chest Pain Discontinue Previous Narcotic Pain Medications And Benzodiazepines 1 each FS .ONE [facility] Stop: 02/22/18 03:51 Potassium Chloride (K-Dur) 40 meq PO ASDIR PRN PRN Reason: FOR SERUM K+ 2.5 - 3.5 Potassium Chloride (Klor-Con) 40 meq PER TUBE ASDIR PRN PRN Reason: FOR SERUM K+ 2.5-3.5 Propofol (Diprivan) 1,000 mg IV INF PRN; Protocol PRN Reason: TO ACHIEVE GOAL RASS Stop: 02/22/18 03:51 Propofol (Diprivan Bolus) 20 mg IV Q5MIN PRN PRN Reason: BREAKTHROUGH AGITATION Stop: 02/22/18 03:51 Senna (Senokot) 2 tab PO HSPRN PRN PRN Reason: Constipation Sodium Chloride (Flush - Normal Saline) 10 ml IVF PRN PRN PRN Reason: Saline Flush Spironolactone (Aldactone) 25 mg PO QA[facility] Last Admin: 01/23/18 09:23 Dose: 25 mg
[2018-01-23 15:50] LABS: Phosphorus 3.2 mg/dL (2.3-4.7); Potassium 3.8 mmol/L (3.5-5.1)
--- NOTE | 2018-01-23 16:42 | EKG ---
Test Reason : STAT Blood Pressure : / mmHG Vent. Rate : 150 BPM Atrial Rate : 150 BPM P-R Int : 140 ms QRS Dur : 092 ms QT Int : 250 ms P-R-T Axes : 065 -27 102 degrees QTc Int : 395 ms Sinus tachycardia Possible Left atrial enlargement Septal infarct , age undetermined Abnormal ECG Confirmed by KANCHAN GIVENS, DR. Littlejohn ([id number]) on 01/23/2018 4:41:52 PM Referred By: LEONEL Confirmed By:DR. Annetta HEMPHILL MD
--- NOTE | 2018-01-23 16:44 | EKG ---
Test Reason : Blood Pressure : / mmHG Vent. Rate : 077 BPM Atrial Rate : 077 BPM P-R Int : 146 ms QRS Dur : 086 ms QT Int : 470 ms P-R-T Axes : 071 -02 -69 degrees QTc Int : 531 ms Normal sinus rhythm Septal infarct , age undetermined Prolonged QT Abnormal ECG Confirmed by KANCHAN GIVENS, DR. Littlejohn ([id number]) on 01/23/2018 4:43:46 PM Referred By: AMA Confirmed By:DR. Annetta HEMPHILL MD
[2018-01-23] MEDS: Lisinopril 5 MG TAB PO SCH ×2 (20:12→20:30)
[2018-01-23] MEDS: Acetaminophen 325 MG TAB PO PRN (23:42)
[2018-01-24] MEDS: Vancomycin HCl 1 GM in Premix Bag 1 BAG IVPB SCH ×3 (02:14→17:58)
[2018-01-24 04:27] LABS: #Lymphocytes 1.6 thou/uL (1.20-3.40); #Monocytes 1.4 thou/uL (0.11-0.59); #Neutrophils 7.2 thou/uL (1.40-6.50); %Basophils 0.4 % (0.0-1.0); %Eosinophils 0.5 % (0.0-10.0); %Lymphocytes 15.3 % (21.0-51.0); %Monocytes 13.5 % (0.0-10.0); %Neutrophils 70.3 % (42.0-75.0); Hemoglobin 12.3 g/dL (14.0-18.0); Mean Corpuscular HGB CONC 32.7 g/dL (32.0-36.0); Mean Corpuscular Hemoglobin 32.4 pg (27.0-31.0); Mean Corpuscular Volume 99.1 fL (78.0-98.0); Mean Platelet Volume 9.2 fL (7.4-10.4); Platelet Count 139 thou/uL (130-400); RBC Distribution Width 13.7 % (11.5-14.5); Red Blood Cell (RBC) Count 3.79 mill/uL (4.70-6.10); White Blood Cell (WBC) Count 10.2 thou/uL (4.8-10.8)
[2018-01-24 04:50] LABS: Anion Gap 10 mmol/L (10-20); BUN (Urea Nitrogen) 24 mg/dL (8.4-25.7); Calc. Creatinine Clearance 99 mL/min (70-130); Calcium 8.2 mg/dL (7.8-10.44); Carbon Dioxide 24 mmol/L (23-31); Chloride 104 mmol/L (98-107); Estimated GFR-MDRD Greater than 90; Glucose 130 mg/dL (80-115); Phosphorus 3.3 mg/dL (2.3-4.7); Sodium 135 mmol/L (136-145)
[2018-01-24 04:59] LABS: Potassium 2.8 mmol/L (3.5-5.1)
[2018-01-24] MEDS: Piperacillin/Tazobactam 3.375 GM in Sodium Chloride 0.9% 100 ML IVPB SCH ×4 (05:07→23:15)
[2018-01-24] MEDS: DOBUTamine 500 mg/250 ml 250 ML IVPB SCH (05:49)
[2018-01-24 06:45] LABS: Actual Bicarbonate (HCO3a) 26.4 mEq/L (22-28); Base Excess (BEa) 2.1 mEq/L (-2.0 to +3.0); CO2 Tension 39.9 mmHg (35.0-45.0); Calcium, Ionized 1.13 mmol/L (1.12-1.30); Hemoglobin (Hb) 12.8 g/dL (14.0-18.0); O2 Tension (PaO2) 83.1 mmHg (> 80.0); Potassium - ABG Lab 3.61 mmol/L (3.70-5.30); pH, Arterial 7.44 (7.35-7.45)
[2018-01-24 06:46] LABS: Puncture Site RRA
[2018-01-24 06:47] LABS: ALV-art Gradient 66.665 (0-20)
[2018-01-24] MEDS ORDERED: DOBUTamine 500 mg/250 ml 250 ML IVPB SCH (07:53)
--- NOTE | 2018-01-24 07:55 | PRG ---
DATE OF SERVICE: 01/23/2018 A 35 minutes critical care time. SUBJECTIVE: The patient remains intubated on mechanical ventilation. There have been no acute ortez es in his condition overnight. PHYSICAL EXAMINATION: VITAL SIGNS: His temperature is 97.9. He had a T-max of 102.7 at midnight, pulse is running in the 50-60, blood pressure 104/54. He is currently on a dobutamine drip at 5 mcg per kilogram per minute. He is also on propofol and fentanyl infusions. A 24-hour intake was 3460, output 2495. HEENT: Pupils react. Sclerae are anicteric. Oropharynx clear. NECK: No JVD. LUNGS: A few crackles heard on inspiration bilaterally. CARDIAC: S1, S2, slightly bradycardic. No murmur. ABDOMEN: Soft, nontender. EXTREMITIES: No clubbing, cyanosis, or edema. LABORATORY DATA: White blood cell count 10.2, hematocrit 37.6, platelet count 139. PH 7.44, PCO2 39 , PO2 of 83, it is on SIMV rate 12 with an inspiratory pressure of 14, PEEP 5, FiO2 28%. Sodium 135, potassium 2.8, chloride 104, CO2 24, BUN 24, creatinine 0.8, glucose 130. X-RAY FINDINGS: His chest x-ray shows gross improvement in the bilateral perihilar infiltrates ramone red to yesterday. ASSESSMENT: 1. Acute systolic heart failure. 2. Underlying severe cardiomyopathy. 3. Acute hypoxic respiratory failure requiring mechanical ventilation. 4. Febrile illness. PLAN: 1. My hope is to extubate him later this morning if he tolerates spontaneous breathing trial. 2. He is currently on Zosyn and vancomycin for antibiotic coverage. This will continue until we hav e further results from his cultures. 3. He is receiving enoxaparin for deep venous thrombosis prophylaxis. 4. Continue Pepcid for gastrointestinal prophylaxis.
[2018-01-24] MEDS ORDERED: Spironolactone 25 MG TAB PO SCH (08:00)
[2018-01-24] MEDS: Enoxaparin Sodium 40 MG/0.4 ML SYRINGE SC SCH (08:56)
[2018-01-24] MEDS: Furosemide 40 MG/4 ML VIAL SLOW IVP SCH ×2 (08:57→21:12)
[2018-01-24] MEDS: Doxycycline 100 MG CAP PO SCH (08:57)
[2018-01-24] MEDS: Famotidine 20 MG TAB PO SCH ×2 (08:57→21:12)
[2018-01-24] MEDS: Docusate 100 MG CAP PO SCH ×2 (08:58→21:11)
[2018-01-24] MEDS: Spironolactone 25 MG TAB PO SCH (08:58)
[2018-01-24] MEDS: Lisinopril 5 MG TAB PO SCH ×2 (08:58→21:11)
[2018-01-24] MEDS: Clopidogrel Bisulfate 75 MG TAB PO SCH (08:58)
[2018-01-24] MEDS: Aspirin 81 mg Enteric Coated Tablet PO SCH (08:59)
--- NOTE | 2018-01-24 09:11 | RAD ---
PORTABLE CHEST: Date: 01/24/18 COMPARISON: 01/22/18 exam. HISTORY: Respiratory distress. FINDINGS: The parahilar alveolar lung changes, which have an appearance of pulmonary edema, have improved sligh tly as compared to the prior exam. Endotracheal and NG tubes are in satisfactory position. IMPRESSION: Some improvement to the pulmonary edema change. POS: [facility]
[2018-01-24 09:41] LABS: Vancomycin, Trough 18.6 ug/mL
[2018-01-24 09:42] LABS: Potassium 3.6 mmol/L (3.5-5.1)
--- NOTE | 2018-01-24 13:37 | PDOC.PN ---
- Subjective Encounter Start Date: 01/24/18 Encounter Start Time: 13:35 Subjective: extubated this morning and feels weak but no new complaints -: sister at bedside . care discussed in detail - Objective Resuscitation Status: Resuscitation Status FULL:Full Resuscitation MAR Reviewed: Yes Vital Signs & Weight: Vital Signs (12 hours) Temp Pulse Resp BP Pulse Ox 01/24/18 11:00 98.7 F 01/24/18 08:58 56 L 115/64 01/24/18 08:00 98.7 F 100 01/24/18 06:14 61 104/54 L 01/24/18 06:12 100 01/24/18 06:11 100 01/24/18 06:00 16 01/24/18 05:00 97.9 F 01/24/18 04:00 16 01/24/18 02:08 61 95/50 L 01/24/18 02:00 99.1 F 16 Weight Admit Weight 161 lb 1.821 oz Weight 155 lb 6.814 oz Most Recent Monitor Data Heart Rate from ECG 72 NIBP 105/62 NIBP BP-Mean 76 Respiration from ECG 18 SpO2 99 I&O: 01/23/18 01/24/18 01/25/18 06:59 06:59 06:59 Intake Total 1519 3416.8 140.6 Output Total 1805 2495 975 Balance -286 921.8 -834.4 Result Diagrams: 01/26/18 04:20 01/26/18 04:20 Additional Labs: Microbiology 01/22/18 12:41 Venous blood - Right Hand Blood Culture - Preliminary Specimen has been received and culture in progress. No Growth to date. 01/22/18 12:41 Venous blood - Right Hand Blood Culture - Preliminary NO GROWTH AT 48 HOURS 01/22/18 12:32 Venous blood - Left Arm Blood Culture - Preliminary Specimen has been received and culture in progress. No Growth to date. 01/22/18 12:32 Venous blood - Left Arm Blood Culture - Preliminary NO GROWTH AT 48 HOURS Phys Exam - Physical Examination Constitutional: NAD HEENT: PERRLA, moist MMs, sclera anicteric, oral pharynx no lesions Neck: no nodes, no JVD, supple, full ROM Respiratory: no wheezing, no rales, no rhonchi, clear to auscultation bilateral Cardiovascular: RRR, no significant murmur, no rub Gastrointestinal: soft, non-tender, no distention, positive bowel sounds Musculoskeletal: no edema, pulses present Neurological: non-focal, normal sensation, moves all 4 limbs Psychiatric: normal affect, A&O x 3 Skin: no rash Dx/Plan (1) Acute hypoxemic respiratory failure Code(s): J96.01 - ACUTE RESPIRATORY FAILURE WITH HYPOXIA Status: Acute Comment: Extubated 01/24 (2) Acute systolic CHF (congestive heart failure) Code(s): I50.21 - ACUTE SYSTOLIC (CONGESTIVE) HEART FAILURE Status: Acute Comment: EF 10-15%.improving.on Diuretics (3) PNA (pneumonia) Code(s): J18.9 - PNEUMONIA, UNSPECIFIED ORGANISM Status: Acute (4) Sepsis Code(s): A41.9 - SEPSIS, UNSPECIFIED ORGANISM Status: Acute (5) Hypomagnesemia Code(s): E83.42 - HYPOMAGNESEMIA Status: Acute (6) Cholelithiases Code(s): K80.20 - CALCULUS OF GALLBLADDER W/O CHOLECYSTITIS W/O OBSTRUCTION Status: Chronic Qualifiers: Cholelithiasis location: gallbladder Cholecystitis presence: without cholecystitis Biliary obstruction: without biliary obstruction Qualified Code(s): K80.20 - Calculus of gallbladder without cholecystitis without obstruction (7) Cardiomyopathy Code(s): I42.9 - CARDIOMYOPATHY, UNSPECIFIED Status: Chronic Qualifiers: Cardiomyopathy type: unspecified Qualified Code(s): I42.9 - Cardiomyopathy , unspecified Comment: Will anabella need lifevest prior to DC (8) CAD (coronary artery disease) Code(s): I25.10 - ATHSCL HEART DISEASE OF [place] CORONARY ARTERY W/O ANG PCTRS Status: Chronic (9) H/O traumatic brain injury Code(s): Z87.820 - PERSONAL HISTORY OF TRAUMATIC BRAIN INJURY Status: Chronic - Plan plan discussed w/ family, continue antibiotics, PT/OT, respiratory therapy, incentive spirometry, out of bed/ambulate, DVT proph w/SCDs Cont ASA,plavix,JUDE-I,Aldactone.No BB for some reason-defer to cardiology -: discussed Life Vest /AICD w family.Pt will think about it -: cont empiric Abx. following blood Cx-negative so far.stop Doxy-on vanco -: cont supportive care-IS,duonebs,Pulm toilet -: cont diuresis,strict I/os.am labs * . Review of Systems - Review of Systems Constitutional: weakness, malaise. negative: fever, chills, sweats, other ENT: negative: Ear Pain, Ear Discharge, Nose Pain, Nose Discharge, Nose Congestion, Mouth Pain, Mouth Swelling, Throat Pain, Throat Swelling, Other Respiratory: SOB with Excertion. negative: Cough, Dry, Shortness of Breath, Hemoptysis, Pleuritic Pain, Sputum, Wheezing Cardiovascular: negative: chest pain, palpitations, orthopnea, paroxysmal nocturnal dyspnea, edema, light headedness, other Gastrointestinal: negative: Nausea, Vomiting, Abdominal Pain, Diarrhea, Constipation, Melena, Hematochezia, Other Genitourinary: negative: Dysuria, Frequency, Incontinence, Hematuria, Retention , Other Musculoskeletal: negative: Neck Pain, Shoulder Pain, Arm Pain, Back Pain, Hand Pain, Leg Pain, Foot Pain, Other Neurological: negative: Weakness, Numbness, Incoordination, Change in Speech, Confusion, Seizures, Other - Medications/Allergies Allergies/Adverse Reactions: Allergies Allergy/AdvReac Type Severity Reaction Status Date / Time No Known Drug Allergies Allergy Verified 01/21/18 21:06 Medications: Current Medications Acetaminophen (Tylenol) 325 mg PO Q6H PRN PRN Reason: Headache/Fever or Pain Last Admin: 01/23/18 23:42 Dose: 325 mg Al Hydroxide/Mg Hydroxide (Maalox) 30 ml PO Q6H PRN PRN Reason: Heartburn or Indigestion Aspirin (Ecotrin) 81 mg PO DAILY [facility] Last Admin: 01/24/18 08:59 Dose: 81 mg Calcium Carbonate (Tums) 1,000 mg PO Q4H PRN PRN Reason: Heartburn or Indigestion Clonidine (Catapres) 0.1 mg PO Q4H PRN PRN Reason: Systolic BP > 180 Clopidogrel Bisulfate (Plavix) 75 mg PO QAM [facility] Last Admin: 01/24/18 08:58 Dose: 75 mg Docusate Sodium (Colace) 100 mg PO BID [facility] Last Admin: 01/24/18 08:58 Dose: 100 mg Doxycycline Hyclate (Vibramycin) 100 mg PO BID [facility] Last Admin: 09/27/18 08:57 Dose: 100 mg Enoxaparin Sodium (Lovenox) 40 mg SC 0900 [facility] Last Admin: 01/24/18 08:56 Dose: 40 mg Famotidine (Pepcid) 20 mg PO BID [facility] Last Admin: 01/24/18 08:57 Dose: 20 mg Furosemide (Lasix) 40 mg SLOW IVP BID [facility] Last Admin: 01/24/18 08:57 Dose: 40 mg Piperacillin Sod/Tazobactam (Sod 3.375 gm/ Sodium Chloride) 100 mls @ 200 mls/ hr IVPB Q6HR [facility] Last Admin: 01/24/18 11:44 Dose: 100 mls Vancomycin HCl 1 gm/ Device 200 mls @ 200 mls/hr IVPB 0200,1000,1800 [facility] Last Admin: 01/24/18 10:54 Dose: 200 mls Fentanyl Citrate 2,000 mcg/ (Sodium Chloride) 100 mls @ 0 mls/hr IV INF [facility]; Protocol Stop: 02/22/18 03:51 Last Admin: 01/23/18 04:00 Dose: 100 mls Fentanyl Citrate (Fentanyl Bolus) 250 mls @ 0 mls/hr IVPB PRN PRN PRN Reason: Breakthrough pain/agitation Stop: 02/22/18 03:51 Potassium Chloride 40 meq/ (Sodium Chloride) 270 mls @ 135 mls/hr IVPB ASDIR PRN PRN Reason: FOR SERUM K+ 2.5 - 3.5 Potassium Chloride 40 meq/ (Device) 100 mls @ 50 mls/hr IVPB ASDIR PRN PRN Reason: FOR SERUM K+ 2.5 - 3.5 Magnesium Sulfate 1 gm/ Sodium (Chloride) 102 mls @ 102 mls/hr IV PRN PRN PRN Reason: MAG LEVEL 1.4 - 2.0 Last Admin: 01/23/18 10:51 Dose: 102 mls Magnesium Sulfate 2 gm/ Device 100 mls @ 100 mls/hr IVPB ASDIR PRN PRN Reason: MAGNESIUM < 1.4 Potassium Phosphate 9 mmol/ (Sodium Chloride) 103 mls @ 25.75 mls/hr IVPB ASDIR PRN PRN Reason: Phosphate 1.0-1.8 Potassium Phosphate 12 mmol/ (Sodium Chloride) 254 mls @ 63.5 mls/hr IV ASDIR PRN PRN Reason: Serum phosphate 0.5-0.9 Potassium Phosphate 15 mmol/ (Sodium Chloride) 255 mls @ 63.75 mls/hr IV ASDIR PRN PRN Reason: Serum Phos < 0.5 Dobutamine HCl/Dextrose (Dobutamine 500 Mg/250 Ml) 250 mls @ 11.07 mls/hr IVPB INF [facility]; Protocol Lisinopril (Zestril) 5 mg PO BID [facility] Last Admin: 01/24/18 08:58 Dose: 5 mg Lorazepam (Ativan) 2 mg SLOW IVP Q1H PRN PRN Reason: Breakthrough agitation Stop: 02/22/18 03:51 Magnesium Oxide (Magnesium Oxide) 400 mg PO BIDPRN PRN PRN Reason: FOR SERUM MAG 1.4 - 2.0 Magnesium Oxide (Magnesium Oxide) 800 mg PO PRN PRN PRN Reason: FOR SERUM MAG < 1.4 Miscellaneous Medication (Pharmacy To Dose) 0 each IVPB PRN PRN PRN Reason: [facility] Pharmacy to Dose Miscellaneous Medication (Phos-Nak) 1 pkt PO TIDPRN PRN PRN Reason: FOR PHOS LEVEL 1.0 - 1.8 Miscellaneous Medication (Phos-Nak) 2 pkt PO TIDPRN PRN PRN Reason: FOR PHOS LEVEL 0.5 - 1.0 Morphine Sulfate (Morphine Sulfate) 2 mg SLOW IVP Q1H PRN PRN Reason: BREAKTHROUGH PAIN/AGITATION Stop: 02/22/18 03:51 Nitroglycerin (Nitrostat) 0.4 mg SL Q5MIN PRN PRN Reason: Chest Pain Discontinue Previous Narcotic Pain Medications And Benzodiazepines 1 each FS .ONE [facility] Stop: 02/22/18 03:51 Potassium Chloride (K-Dur) 40 meq PO ASDIR PRN PRN Reason: FOR SERUM K+ 2.5 - 3.5 Potassium Chloride (Klor-Con) 40 meq PER TUBE ASDIR PRN PRN Reason: FOR SERUM K+ 2.5-3.5 Last Admin: 01/24/18 05:48 Dose: 40 meq Propofol (Diprivan) 1,000 mg IV INF PRN; Protocol PRN Reason: TO ACHIEVE GOAL RASS Stop: 02/22/18 03:51 Last Admin: 01/24/18 05:48 Dose: 1,000 mg Propofol (Diprivan Bolus) 20 mg IV Q5MIN PRN PRN Reason: BREAKTHROUGH AGITATION Stop: 02/22/18 03:51 Senna (Senokot) 2 tab PO HSPRN PRN PRN Reason: Constipation Sodium Chloride (Flush - Normal Saline) 10 ml IVF PRN PRN PRN Reason: Saline Flush Last Admin: 01/24/18 09:01 Dose: 10 ml Spironolactone (Aldactone) 50 mg PO [facility] Last Admin: 01/24/18 08:58 Dose: 50 mg
[2018-01-24] MEDS ORDERED: Acetaminophen 325 MG TAB PO PRN (17:02)
[2018-01-24 17:16] LABS: Bilirubin Small (Negative); Blood, Urine Large (Negative); Clarity CLEAR (Clear); Glucose, Urine (Dipstick) Negative (Negative); Leukocyte Moderate (Negative); Nitrite Negative (Negative); Protein, Urine (Dipstick) Trace mg/dL (Neg-Trace); Urobilinogen > or = 8.0 mg/dL (0.2-1.0)
[2018-01-24 17:23] LABS: Bacteria/HPF None Seen HPF (None Seen); Hyaline Casts/LPF 0-3 HYALINE CAST LPF (0-3 Hyaline); RBC/HPF GREATER THAN 50-TNTC HPF (0-3); Squamous Epithelial 0-3 HPF (0-3)
[2018-01-25] MEDS: Vancomycin HCl 1 GM in Premix Bag 1 BAG IVPB SCH (03:30)
[2018-01-25 05:21] LABS: #Eosinphils 0.1 thou/uL (0.0-0.7); #Lymphocytes 1.3 thou/uL (1.20-3.40); #Monocytes 1.1 thou/uL (0.11-0.59); #Neutrophils 8.6 thou/uL (1.40-6.50); %Basophils 0.4 % (0.0-1.0); %Eosinophils 0.6 % (0.0-10.0); %Lymphocytes 11.7 % (21.0-51.0); %Monocytes 9.7 % (0.0-10.0); %Neutrophils 77.7 % (42.0-75.0); Hemoglobin 13.2 g/dL (14.0-18.0); Mean Corpuscular Hemoglobin 32.6 pg (27.0-31.0); Mean Corpuscular Volume 98.8 fL (78.0-98.0); Mean Platelet Volume 8.8 fL (7.4-10.4); Platelet Count 153 thou/uL (130-400); RBC Distribution Width 13.7 % (11.5-14.5); Red Blood Cell (RBC) Count 4.04 mill/uL (4.70-6.10)
[2018-01-25] MEDS: Piperacillin/Tazobactam 3.375 GM in Sodium Chloride 0.9% 100 ML IVPB SCH (05:48)
[2018-01-25 06:03] LABS: Anion Gap 10 mmol/L (10-20); BUN (Urea Nitrogen) 16 mg/dL (8.4-25.7); Calc. Creatinine Clearance 104 mL/min (70-130); Calcium 8.5 mg/dL (7.8-10.44); Carbon Dioxide 27 mmol/L (23-31); Chloride 102 mmol/L (98-107); Estimated GFR-MDRD Greater than 90; Glucose 106 mg/dL (80-115); Magnesium 1.6 mg/dL (1.6-2.6); Phosphorus 3.1 mg/dL (2.3-4.7); Sodium 136 mmol/L (136-145)
[2018-01-25 06:15] LABS: Potassium 2.9 mmol/L (3.5-5.1)
--- NOTE | 2018-01-25 07:49 | PRG ---
DATE OF SERVICE: 01/25/2018 SUBJECTIVE: This gentleman was successfully extubated yesterday and has done reasonably well overnig . OBJECTIVE: VITAL SIGNS: He continues to have some intermittent fever with a T-max of 102 last night and is curr ently at 99.4 this morning; pulse is 65, blood pressure 123/62. A 24-hour intake 1333, output 3505. HEENT: Unremarkable. NECK: Without adenopathy or JVD. LUNGS: A few crackles at the bases. CARDIAC: S1, S2 regular. He continues on dobutamine drip at 5 mcg per minute. ABDOMEN: Soft, nontender. EXTREMITIES: No edema. LABORATORY DATA: Sodium 136, potassium 2.9, chloride 102, CO2 27, BUN 16, creatinine 0.7, glucose 10 6. White blood cell count 11, hematocrit 39.9, platelet count 153 with 77% neutrophils. Cultures sh owed no growth to date. ASSESSMENT: 1. Congestive heart failure. 2. Severe cardiomyopathy. 3. Underlying fever - doubt pneumonia, but cannot completely rule out given his overt failure appear ance on x-ray. 4. Hypokalemia secondary to diuretic use. PLAN: 1. I am going to go ahead and switch him over to oral antibiotics. 2. Up in a chair as tolerated. 3. Decrease Lasix to 1 daily. He is on spironolactone with this. 4. Supplement potassium. 5. Central line out when practical.
[2018-01-25] MEDS: Spironolactone 25 MG TAB PO SCH (08:20)
--- NOTE | 2018-01-25 08:38 | RAD ---
PORTABLE CHEST: History: Respiratory distress. Comparison: Prior day's study. FINDINGS: Endotracheal and NG tubes have been removed. Parenchymal lung changes show some slight improvement to some of the changes in the right lung, specifically some of the changes in the right base. IMPRESSION: 1. Left sided subclavian line, catheter tip directing into the jugular vein. 2. Slight improvement to the interstitial alveolar lung change. Interval removal of the endotracheal and NG tubes. POS: [facility]
[2018-01-25] MEDS: Cefdinir 300 MG CAP PO SCH (08:51)
[2018-01-25] MEDS: Aspirin 81 mg Enteric Coated Tablet PO SCH (08:52)
[2018-01-25] MEDS: Famotidine 20 MG TAB PO SCH ×2 (08:52→20:27)
[2018-01-25] MEDS: Clopidogrel Bisulfate 75 MG TAB PO SCH (08:53)
[2018-01-25] MEDS: Enoxaparin Sodium 40 MG/0.4 ML SYRINGE SC SCH (08:54)
[2018-01-25] MEDS: Docusate 100 MG CAP PO SCH ×2 (08:54→20:27)
[2018-01-25] MEDS: Furosemide 40 MG/4 ML VIAL SLOW IVP SCH (08:54)
[2018-01-25] MEDS: Lisinopril 5 MG TAB PO SCH ×2 (10:21→20:26)
[2018-01-25 10:56] LABS: Potassium 3.1 mmol/L (3.5-5.1)
[2018-01-25] MEDS ORDERED: Potassium Chloride 20 MEQ TAB PO SCH (15:00)
[2018-01-25 15:03] VITALS: BMI 23.2
--- NOTE | 2018-01-25 15:20 | PDOC.PN ---
- Subjective Encounter Start Date: 01/25/18 Encounter Start Time: 15:18 Subjective: feels OK. no new complaints -: discussed Life vest again but Pt undecided -: Dobutamine drip off since today morning - Objective Resuscitation Status: Resuscitation Status FULL:Full Resuscitation MAR Reviewed: Yes Vital Signs & Weight: Vital Signs (12 hours) Temp Pulse Pulse Pulse BP BP BP 01/25/18 11:00 98.9 F 01/25/18 10:21 62 114/55 L 01/25/18 09:52 63 61 102/65 114/55 L 01/25/18 07:59 01/25/18 07:22 01/25/18 07:00 99.4 F Pulse Ox Pulse Ox Pulse Ox 01/25/18 11:00 01/25/18 10:21 01/25/18 09:52 98 100 01/25/18 07:59 97 01/25/18 07:22 96 01/25/18 07:00 Weight Admit Weight 161 lb 1.821 oz Weight 152 lb 12.485 oz Most Recent Monitor Data Heart Rate from ECG 57 NIBP 113/56 NIBP BP-Mean 75 Respiration from ECG 21 SpO2 94 I&O: 01/24/18 01/25/18 01/26/18 06:59 06:59 06:59 Intake Total 3416.8 1333.6 663 Output Total 2495 3505 730 Balance 921.8 -2171.4 -67 Result Diagrams: 01/26/18 04:20 01/26/18 04:20 Additional Labs: Microbiology 01/24/18 17:13 Venous blood - Left Arm Blood Culture - Preliminary Specimen has been received and culture in progress. No Growth to date. 01/24/18 17:09 Venous blood - Right Hand Blood Culture - Preliminary Specimen has been received and culture in progress. No Growth to date. 01/22/18 12:41 Venous blood - Right Hand Blood Culture - Preliminary NO GROWTH AT 48 HOURS 01/22/18 12:32 Venous blood - Left Arm Blood Culture - Preliminary NO GROWTH AT 48 HOURS EKG Reviewed by me: Yes (NSR on monitor) Phys Exam - Physical Examination Constitutional: NAD weak and tired looking HEENT: PERRLA, moist MMs, sclera anicteric, oral pharynx no lesions Neck: no nodes, no JVD, supple, full ROM Respiratory: no wheezing, no rales, no rhonchi, clear to auscultation bilateral Cardiovascular: RRR, no significant murmur Gastrointestinal: soft, non-tender, no distention, positive bowel sounds Musculoskeletal: no edema, pulses present Neurological: non-focal, normal sensation, moves all 4 limbs Psychiatric: normal affect, A&O x 3 Skin: no rash Dx/Plan (1) Acute hypoxemic respiratory failure Code(s): J96.01 - ACUTE RESPIRATORY FAILURE WITH HYPOXIA Status: Acute Comment: Extubated 01/24 (2) Acute systolic CHF (congestive heart failure) Code(s): I50.21 - ACUTE SYSTOLIC (CONGESTIVE) HEART FAILURE Status: Acute Comment: EF 10-15%.improving.on Diuretics (3) PNA (pneumonia) Code(s): J18.9 - PNEUMONIA, UNSPECIFIED ORGANISM Status: Acute (4) Sepsis Code(s): A41.9 - SEPSIS, UNSPECIFIED ORGANISM Status: Acute (5) Hypomagnesemia Code(s): E83.42 - HYPOMAGNESEMIA Status: Acute (6) Cholelithiases Code(s): K80.20 - CALCULUS OF GALLBLADDER W/O CHOLECYSTITIS W/O OBSTRUCTION Status: Chronic Qualifiers: Cholelithiasis location: gallbladder Cholecystitis presence: without cholecystitis Biliary obstruction: without biliary obstruction Qualified Code(s): K80.20 - Calculus of gallbladder without cholecystitis without obstruction (7) Cardiomyopathy Code(s): I42.9 - CARDIOMYOPATHY, UNSPECIFIED Status: Chronic Qualifiers: Cardiomyopathy type: unspecified Qualified Code(s): I42.9 - Cardiomyopathy , unspecified Comment: Mamadou kyle need lifevest prior to DC (8) CAD (coronary artery disease) Code(s): I25.10 - ATHSCL HEART DISEASE OF [place] CORONARY ARTERY W/O ANG PCTRS Status: Chronic (9) H/O traumatic brain injury Code(s): Z87.820 - PERSONAL HISTORY OF TRAUMATIC BRAIN INJURY Status: Chronic - Plan continue antibiotics, PT/OT, respiratory therapy, incentive spirometry, out of bed/ambulate, DVT proph w/SCDs Chemodynamically stable and clinically better. drip off -: cont cardio-prudent meds w ASA,JUDE-I,plavix.Aldactone. -: ABx changed to PO.follow Cx-negative so far -: Rehab eval.AM labs -: ? Lifevest on DC. ? BB .will defer to cardiology. * . Review of Systems - Review of Systems Constitutional: weakness, malaise ENT: negative: Ear Pain, Ear Discharge, Nose Pain, Nose Discharge, Nose Congestion, Mouth Pain, Mouth Swelling, Throat Pain, Throat Swelling, Other Respiratory: negative: Cough, Dry, Shortness of Breath, Hemoptysis, SOB with Excertion, Pleuritic Pain, Sputum, Wheezing Cardiovascular: negative: chest pain, palpitations, orthopnea, paroxysmal nocturnal dyspnea, edema, light headedness, other Gastrointestinal: negative: Nausea, Vomiting, Abdominal Pain, Diarrhea, Constipation, Melena, Hematochezia, Other Genitourinary: negative: Dysuria, Frequency, Incontinence, Hematuria, Retention , Other Musculoskeletal: negative: Neck Pain, Shoulder Pain, Arm Pain, Back Pain, Hand Pain, Leg Pain, Foot Pain, Other Skin: negative: Rash, Lesions, Ralph, Bruising, Other Neurological: negative: Weakness, Numbness, Incoordination, Change in Speech, Confusion, Seizures, Other - Medications/Allergies Allergies/Adverse Reactions: Allergies Allergy/AdvReac Type Severity Reaction Status Date / Time No Known Drug Allergies Allergy Verified 01/21/18 21:06 Medications: Current Medications Acetaminophen (Tylenol) 650 mg PO Q6H PRN PRN Reason: Fever > 101 Last Admin: 01/24/18 17:30 Dose: 650 mg Al Hydroxide/Mg Hydroxide (Maalox) 30 ml PO Q6H PRN PRN Reason: Heartburn or Indigestion Alprazolam (Xanax) 0.25 mg PO Q6H PRN PRN Reason: Anxiety Aspirin (Ecotrin) 81 mg PO DAILY [facility] Last Admin: 01/25/18 08:52 Dose: 81 mg Calcium Carbonate (Tums) 1,000 mg PO Q4H PRN PRN Reason: Heartburn or Indigestion Cefdinir (Omnicef) 600 mg PO DAILY [facility] Last Admin: 01/25/18 08:51 Dose: 600 mg Clonidine (Catapres) 0.1 mg PO Q4H PRN PRN Reason: Systolic BP > 180 Cl[facility]idog[facility] ([facility]ix) [facility] Last Admin: 01/25/18 08:53 Dose: 75 mg Docusate Sodium (Colace) 100 mg PO BID [facility] Last Admin: 01/25/18 08:54 Dose: 100 mg Enoxaparin Sodium (Lovenox) 40 mg SC 09 [facility] Last Admin: 01/25/18 08:54 Dose: 40 mg Famotidine (Pepcid) 20 mg PO BID [facility] Last Admin: 01/25/18 08:52 Dose: 20 mg Furosemide (Lasix) 40 mg SLOW IVP DAILY [facility] Last Admin: 01/25/18 08:54 Dose: 40 mg Potassium Chloride 40 meq/ (Sodium Chloride) 270 mls @ 135 mls/hr IVPB ASDIR PRN PRN Reason: FOR SERUM K+ 2.5 - 3.5 Potassium Chloride 40 meq/ (Device) 100 mls @ 50 mls/hr IVPB ASDIR PRN PRN Reason: FOR SERUM K+ 2.5 - 3.5 Last Admin: 01/25/18 12:16 Dose: 100 mls Magnesium Sulfate 1 gm/ Sodium (Chloride) 102 mls @ 102 mls/hr IV PRN PRN PRN Reason: MAG LEVEL 1.4 - 2.0 Last Admin: 01/23/18 10:51 Dose: 102 mls Magnesium Sulfate 2 gm/ Device 100 mls @ 100 mls/hr IVPB ASDIR PRN PRN Reason: MAGNESIUM < 1.4 Potassium Phosphate 9 mmol/ (Sodium Chloride) 103 mls @ 25.75 mls/hr IVPB ASDIR PRN PRN Reason: Phosphate 1.0-1.8 Potassium Phosphate 12 mmol/ (Sodium Chloride) 254 mls @ 63.5 mls/hr IV ASDIR PRN PRN Reason: Serum phosphate 0.5-0.9 Potassium Phosphate 15 mmol/ (Sodium Chloride) 255 mls @ 63.75 mls/hr IV ASDIR PRN PRN Reason: Serum Phos < 0.5 Lisinopril (Zestril) 5 mg PO BID [facility] Last Admin: 01/25/18 10:21 Dose: 5 mg Lorazepam (Ativan) 2 mg SLOW IVP Q1H PRN PRN Reason: Breakthrough agitation Stop: 02/22/18 03:51 Magnesium Oxide (Magnesium Oxide) 400 mg PO BIDPRN PRN PRN Reason: FOR SERUM MAG 1.4 - 2.0 Magnesium Oxide (Magnesium Oxide) 800 mg PO PRN PRN PRN Reason: FOR SERUM MAG < 1.4 Miscellaneous Medication (Phos-Nak) 1 pkt PO TIDPRN PRN PRN Reason: FOR PHOS LEVEL 1.0 - 1.8 Miscellaneous Medication (Phos-Nak) 2 pkt PO TIDPRN PRN PRN Reason: FOR PHOS LEVEL 0.5 - 1.0 Nitroglycerin (Nitrostat) 0.4 mg SL Q5MIN PRN PRN Reason: Chest Pain Potassium Chloride (K-Dur) 40 meq PO ASDIR PRN PRN Reason: FOR SERUM K+ 2.5 - 3.5 Last Admin: 01/25/18 06:28 Dose: 40 meq Potassium Chloride (Klor-Con) 40 meq PER TUBE ASDIR PRN PRN Reason: FOR SERUM K+ 2.5-3.5 Last Admin: 01/24/18 05:48 Dose: 40 meq Potassium Chloride (K-Dur) 40 meq PO 1500 [facility] Stop: 01/25/18 16:00 Senna (Senokot) 2 tab PO HSPRN PRN PRN Reason: Constipation Sodium Chloride (Flush - Normal Saline) 10 ml IVF PRN PRN PRN Reason: Saline Flush Last Admin: 01/24/18 09:01 Dose: 10 ml Spironolactone (Aldactone) 50 mg PO [facility] Last Admin: 01/25/18 08:20 Dose: 50 mg
[2018-01-25] MEDS: ALPRAZolam 0.25 MG TAB PO PRN ×2 (15:40→21:54)
[2018-01-26 05:05] LABS: #Eosinphils 0.1 thou/uL (0.0-0.7); #Lymphocytes 1.1 thou/uL (1.20-3.40); #Monocytes 1.1 thou/uL (0.11-0.59); %Basophils 0.4 % (0.0-1.0); %Eosinophils 0.7 % (0.0-10.0); %Lymphocytes 10.4 % (21.0-51.0); %Monocytes 10.9 % (0.0-10.0); %Neutrophils 77.7 % (42.0-75.0); Hemoglobin 13.1 g/dL (14.0-18.0); Mean Corpuscular HGB CONC 32.8 g/dL (32.0-36.0); Mean Corpuscular Hemoglobin 32.2 pg (27.0-31.0); Mean Corpuscular Volume 98.2 fL (78.0-98.0); Mean Platelet Volume 8.9 fL (7.4-10.4); Platelet Count 172 thou/uL (130-400); RBC Distribution Width 13.5 % (11.5-14.5); Red Blood Cell (RBC) Count 4.06 mill/uL (4.70-6.10); White Blood Cell (WBC) Count 10.2 thou/uL (4.8-10.8)
[2018-01-26 05:49] LABS: Anion Gap 13 mmol/L (10-20); BUN (Urea Nitrogen) 24 mg/dL (8.4-25.7); Calc. Creatinine Clearance 106 mL/min (70-130); Calcium 8.4 mg/dL (7.8-10.44); Carbon Dioxide 21 mmol/L (23-31); Chloride 106 mmol/L (98-107); Estimated GFR-MDRD Greater than 90; Glucose 96 mg/dL (80-115); Phosphorus 2.8 mg/dL (2.3-4.7); Potassium 4.3 mmol/L (3.5-5.1); Sodium 136 mmol/L (136-145)
[2018-01-26] MEDS: Spironolactone 25 MG TAB PO SCH (10:25)
[2018-01-26] MEDS: Lisinopril 5 MG TAB PO SCH ×2 (10:26→20:05)
[2018-01-26] MEDS: Aspirin 81 mg Enteric Coated Tablet PO SCH (10:26)
[2018-01-26] MEDS: Cefdinir 300 MG CAP PO SCH (10:26)
[2018-01-26] MEDS: Docusate 100 MG CAP PO SCH ×2 (10:26→20:04)
[2018-01-26] MEDS: Famotidine 20 MG TAB PO SCH ×2 (10:26→20:04)
[2018-01-26] MEDS: Furosemide 40 MG/4 ML VIAL SLOW IVP SCH (10:28)
[2018-01-26] MEDS: Enoxaparin Sodium 40 MG/0.4 ML SYRINGE SC SCH (10:28)
[2018-01-26] MEDS: Clopidogrel Bisulfate 75 MG TAB PO SCH (10:28)
--- NOTE | 2018-01-26 12:33 | PDOC.CTH ---
Cardiology Progress Note - Subjective Breathing comfortably. No chest pain. - Objective Vital Signs Temp Pulse BP Pulse Ox 01/26/18 10:26 75 125/68 01/26/18 08:00 96 01/26/18 07:00 100.7 F H 01/26/18 04:00 98.6 F Admit Weight 161 lb 1.821 oz Weight 156 lb 11.979 oz 01/25/18 01/26/18 01/27/18 06:59 06:59 06:59 Intake Total 1333.6 1183 600 Output Total 3505 1765 1660 Balance -2171.4 -582 1060 - Physical Examination General/Neuro: alert & oriented x3, NAD Neck: no JVD present Lungs: CTA, unlabored respirations Heart: RRR Abdomen: NT/ND Extremities: other: (no edema) - Telemetry Telemetry Rhythm: NSR - Labs Result Diagrams: 01/26/18 04:20 01/26/18 04:20 Troponin/CKMB CK-MB (CK-2) 1.8 ng/mL (0-6.6) 01/21/18 16:05 Troponin I 0.062 ng/mL (< 0.028) H 01/21/18 22:09 - Assessment/Plan 1.Acute on chronic systolic heart failure 2. Severe dilated CM 3. LVEF at 10-15% 4. Hypokalemia 5. CAD PLAN: - May switch Lasix to PO tomorrow. - Continue Spironolactone. - Monitor K. - Will start low dose BB.
--- NOTE | 2018-01-26 14:07 | PDOC.PN ---
- Subjective Encounter Start Date: 01/26/18 Encounter Start Time: 14:05 Subjective: feels OK. no new complaints -: wants to go home.no acute events overnight - Objective Resuscitation Status: Resuscitation Status FULL:Full Resuscitation MAR Reviewed: Yes Vital Signs & Weight: Vital Signs (12 hours) Temp Pulse BP Pulse Ox 01/26/18 10:26 75 125/68 01/26/18 08:00 96 01/26/18 07:00 100.7 F H 01/26/18 04:00 98.6 F Weight Admit Weight 161 lb 1.821 oz Weight 156 lb 11.979 oz Most Recent Monitor Data Heart Rate from ECG 76 NIBP 124/68 NIBP BP-Mean 86 Respiration from ECG 25 SpO2 98 I&O: 01/25/18 01/26/18 01/27/18 06:59 06:59 06:59 Intake Total 1333.6 1183 600 Output Total 3505 1765 1660 Balance -2171.4 -582 -1060 Result Diagrams: 01/26/18 04:20 01/26/18 04:20 Additional Labs: Microbiology 01/24/18 17:13 Venous blood - Left Arm Blood Culture - Preliminary Specimen has been received and culture in progress. No Growth to date. 01/24/18 17:13 Venous blood - Left Arm Blood Culture - Preliminary NO GROWTH AT 48 HOURS 01/24/18 17:09 Venous blood - Right Hand Blood Culture - Preliminary Specimen has been received and culture in progress. No Growth to date. 01/24/18 17:09 Venous blood - Right Hand Blood Culture - Preliminary NO GROWTH AT 48 HOURS 01/24/18 17:00 Urine rodriguez catheter Urine Culture - Preliminary NO GROWTH AT 24 HOURS 01/22/18 12:41 Venous blood - Right Hand Blood Culture - Preliminary NO GROWTH AT 48 HOURS 01/22/18 12:32 Venous blood - Left Arm Blood Culture - Preliminary NO GROWTH AT 48 HOURS Phys Exam - Physical Examination Constitutional: NAD HEENT: PERRLA, moist MMs, sclera anicteric, oral pharynx no lesions Neck: no nodes, no JVD, supple, full ROM Respiratory: no wheezing, no rales, no rhonchi, clear to auscultation bilateral Cardiovascular: RRR, no significant murmur, no rub Gastrointestinal: soft, non-tender, no distention, positive bowel sounds Musculoskeletal: no edema, pulses present Neurological: non-focal, normal sensation, moves all 4 limbs Psychiatric: normal affect, A&O x 3 Deviation from normal: slow mentation Skin: no rash Dx/Plan (1) Acute hypoxemic respiratory failure Code(s): J96.01 - ACUTE RESPIRATORY FAILURE WITH HYPOXIA Status: Acute Comment: Extubated 01/24 (2) Acute systolic CHF (congestive heart failure) Code(s): I50.21 - ACUTE SYSTOLIC (CONGESTIVE) HEART FAILURE Status: Acute Comment: EF 10-15%.improving.on Diuretics (3) PNA (pneumonia) Code(s): J18.9 - PNEUMONIA, UNSPECIFIED ORGANISM Status: Acute (4) Sepsis Code(s): A41.9 - SEPSIS, UNSPECIFIED ORGANISM Status: Acute (5) Hypomagnesemia Code(s): E83.42 - HYPOMAGNESEMIA Status: Acute (6) Cholelithiases Code(s): K80.20 - CALCULUS OF GALLBLADDER W/O CHOLECYSTITIS W/O OBSTRUCTION Status: Chronic Qualifiers: Cholelithiasis location: gallbladder Cholecystitis presence: without cholecystitis Biliary obstruction: without biliary obstruction Qualified Code(s): K80.20 - Calculus of gallbladder without cholecystitis without obstruction (7) Cardiomyopathy Code(s): I42.9 - CARDIOMYOPATHY, UNSPECIFIED Status: Chronic Qualifiers: Cardiomyopathy type: unspecified Qualified Code(s): I42.9 - Cardiomyopathy , unspecified Comment: Will anabella need lifevest prior to DC (8) CAD (coronary artery disease) Code(s): I25.10 - ATHSCL HEART DISEASE OF [place] CORONARY ARTERY W/O ANG PCTRS Status: Chronic (9) H/O traumatic brain injury Code(s): Z87.820 - PERSONAL HISTORY OF TRAUMATIC BRAIN INJURY Status: Chronic - Plan continue antibiotics, PT/OT, respiratory therapy, incentive spirometry, out of bed/ambulate, DVT proph w/SCDs Clinically better. off of dobutamine. -: cont ASA,JUDE-I,aldactone.lasix.Add BB. -: empiric PO ABx. all Cx remain negative so far -: rehab eval -: will need Lifevest on DC.Hemodynamically stable. AM labs * . Review of Systems - Review of Systems Constitutional: weakness, malaise. negative: fever, chills, sweats, other ENT: negative: Ear Pain, Ear Discharge, Nose Pain, Nose Discharge, Nose Congestion, Mouth Pain, Mouth Swelling, Throat Pain, Throat Swelling, Other Respiratory: negative: Cough, Dry, Shortness of Breath, Hemoptysis, SOB with Excertion, Pleuritic Pain, Sputum, Wheezing Cardiovascular: negative: chest pain, palpitations, orthopnea, paroxysmal nocturnal dyspnea, edema, light headedness, other Gastrointestinal: negative: Nausea, Vomiting, Abdominal Pain, Diarrhea, Constipation, Melena, Hematochezia, Other Genitourinary: negative: Dysuria, Frequency, Incontinence, Hematuria, Retention , Other Musculoskeletal: negative: Neck Pain, Shoulder Pain, Arm Pain, Back Pain, Hand Pain, Leg Pain, Foot Pain, Other Neurological: negative: Weakness, Numbness, Incoordination, Change in Speech, Confusion, Seizures, Other - Medications/Allergies Allergies/Adverse Reactions: Allergies Allergy/AdvReac Type Severity Reaction Status Date / Time No Known Drug Allergies Allergy Verified 01/21/18 21:06 Medications: Current Medications Acetaminophen (Tylenol) 650 mg PO Q6H PRN PRN Reason: Fever > 101 Last Admin: 01/24/18 17:30 Dose: 650 mg Al Hydroxide/Mg Hydroxide (Maalox) 30 ml PO Q6H PRN PRN Reason: Heartburn or Indigestion Alprazolam (Xanax) 0.25 mg PO Q6H PRN PRN Reason: Anxiety Last Admin: 01/25/18 21:54 Dose: 0.25 mg Aspirin (Ecotrin) 81 mg PO DAILY [facility] Last Admin: 01/26/18 10:26 Dose: 81 mg Calcium Carbonate (Tums) 1,000 mg PO Q4H PRN PRN Reason: Heartburn or Indigestion [facility] Cefdinir (Omnicef) 600 mg PO DAILY [facility] Last Admin: 01/26/18 10:26 Dose: 600 mg Clonidine (Catapres) 0.1 mg PO Q4H PRN PRN Reason: Systolic BP > 180 Clopidogrel Bisulfate (Plavix) 75 mg PO QAM [facility] Last Admin: 01/26/18 10:28 Dose: 75 mg Docusate Sodium (Colace) 100 mg PO BID [facility] Last Admin: 01/26/18 10:26 Dose: 100 mg Enoxaparin Sodium (Lovenox) 40 mg SC 0900 [facility] Last Admin: 01/26/18 10:28 Dose: 40 mg Famotidine (Pepcid) 20 mg PO BID [facility] Last Admin: 01/26/18 10:26 Dose: 20 mg Furosemide (Lasix) 40 mg SLOW IVP DAILY [facility] Last Admin: 01/26/18 10:28 Dose: 40 mg Potassium Chloride 40 meq/ (Sodium Chloride) 270 mls @ 135 mls/hr IVPB ASDIR PRN PRN Reason: FOR SERUM K+ 2.5 - 3.5 Potassium Chloride 40 meq/ (Device) 100 mls @ 50 mls/hr IVPB ASDIR PRN PRN Reason: FOR SERUM K+ 2.5 - 3.5 Last Admin: 01/25/18 12:16 Dose: 100 mls Magnesium Sulfate 1 gm/ Sodium (Chloride) 102 mls @ 102 mls/hr IV PRN PRN PRN Reason: MAG LEVEL 1.4 - 2.0 Last Admin: 01/23/18 10:51 Dose: 102 mls Magnesium Sulfate 2 gm/ Device 100 mls @ 100 mls/hr IVPB ASDIR PRN PRN Reason: MAGNESIUM < 1.4 Potassium Phosphate 9 mmol/ (Sodium Chloride) 103 mls @ 25.75 mls/hr IVPB ASDIR PRN PRN Reason: Phosphate 1.0-1.8 Potassium Phosphate 12 mmol/ (Sodium Chloride) 254 mls @ 63.5 mls/hr IV ASDIR PRN PRN Reason: Serum phosphate 0.5-0.9 Potassium Phosphate 15 mmol/ (Sodium Chloride) 255 mls @ 63.75 mls/hr IV ASDIR PRN PRN Reason: Serum Phos < 0.5 Lisinopril (Zestril) 5 mg PO BID [facility] Last Admin: 01/26/18 10:26 Dose: 5 mg Lorazepam (Ativan) 2 mg SLOW IVP Q1H PRN PRN Reason: Breakthrough agitation Stop: 02/22/18 03:51 Magnesium Oxide (Magnesium Oxide) 400 mg PO BIDPRN PRN PRN Reason: FOR SERUM MAG 1.4 - 2.0 Magnesium Oxide (Magnesium Oxide) 800 mg PO PRN PRN PRN Reason: FOR SERUM MAG < 1.4 Miscellaneous Medication (Phos-Nak) 1 pkt PO TIDPRN PRN PRN Reason: FOR PHOS LEVEL 1.0 - 1.8 Miscellaneous Medication (Phos-Nak) 2 pkt PO TIDPRN PRN PRN Reason: FOR PHOS LEVEL 0.5 - 1.0 Nitroglycerin (Nitrostat) 0.4 mg SL Q5MIN PRN PRN Reason: Chest Pain Potassium Chloride (K-Dur) 40 meq PO ASDIR PRN PRN Reason: FOR SERUM K+ 2.5 - 3.5 Last Admin: 01/25/18 06:28 Dose: 40 meq Potassium Chloride (Klor-Con) 40 meq PER TUBE ASDIR PRN PRN Reason: FOR SERUM K+ 2.5-3.5 Last Admin: 01/24/18 05:48 Dose: 40 meq Senna (Senokot) 2 tab PO HSPRN PRN PRN Reason: Constipation Sodium Chloride (Flush - Normal Saline) 10 ml IVF PRN PRN PRN Reason: Saline Flush Last Admin: 01/24/18 09:01 Dose: 10 ml Spironolactone (Aldactone) 50 mg PO [facility] Last Admin: 01/26/18 10:25 Dose: 50 mg
--- NOTE | 2018-01-26 15:50 | EKG ---
Test Reason : CP Blood Pressure : / mmHG Vent. Rate : 072 BPM Atrial Rate : 072 BPM P-R Int : 128 ms QRS Dur : 084 ms QT Int : 456 ms P-R-T Axes : 022 -09 008 degrees QTc Int : 499 ms Normal sinus rhythm Nonspecific ST and T wave abnormality Prolonged QT Abnormal ECG Confirmed by KAITLIN PALACIO M.D. ([id number]), photo editor FABIÁN MARTÍNEZ ([id number]) on 01/26/2018 3:49:51 PM Referred By: Confirmed By:KAITLIN PALACIO M.D.
[2018-01-26] MEDS: Carvedilol 3.125 MG TAB PO SCH (20:04)
[2018-01-26] MEDS: ALPRAZolam 0.25 MG TAB PO PRN (20:04)
--- NOTE | 2018-01-26 23:34 | PRG ---
DATE OF SERVICE: 01/26/2018 SUBJECTIVE: Mr. Yoder has no complaints. He says he is feeling better. He is oriented, but his affect is different. OBJECTIVE: VITAL SIGNS: His heart rate is 73, blood pressure 126/81. His intake and output is negative 582. LUNGS: Clear posteriorly. HEART: Regular rhythm. ABDOMEN: Soft. EXTREMITIES: Without asymmetry. NEUROLOGIC: Grossly nonfocal. [place] walking in the [place] today. Nurses have concerns about him go ing out into unsupervised environment. LABORATORY DATA: His white count is 10.2, hemoglobin 13.1, platelets 172. Sodium 136, potassium 4.3 , chloride 106, bicarb 21, BUN 24, creatinine 0.7. IMPRESSION: 1. Status post respiratory failure from congestive heart failure 2. Severe cardiomyopathy. 3. Fever. He is afebrile, on p.o. antibiotics. 4. History of anxiety, depression, and panic attacks in the past. 5. History of shoulder surgery. 6. History of myocardial infarction in 2013 while he was incarcerated, ? stenting in the past. 7. History of transient ischemic attack in the past. PLAN: Continue supportive care and monitor environment.
[2018-01-27 04:51] LABS: #Eosinphils 0.1 thou/uL (0.0-0.7); #Lymphocytes 1.6 thou/uL (1.20-3.40); #Monocytes 1.1 thou/uL (0.11-0.59); %Basophils 0.5 % (0.0-1.0); %Eosinophils 1.2 % (0.0-10.0); %Lymphocytes 16.6 % (21.0-51.0); %Neutrophils 70.8 % (42.0-75.0); Hemoglobin 13.9 g/dL (14.0-18.0); Mean Corpuscular HGB CONC 31.6 g/dL (32.0-36.0); Mean Corpuscular Hemoglobin 31.3 pg (27.0-31.0); Mean Platelet Volume 8.6 fL (7.4-10.4); Platelet Count 246 thou/uL (130-400); RBC Distribution Width 13.4 % (11.5-14.5); Red Blood Cell (RBC) Count 4.44 mill/uL (4.70-6.10); White Blood Cell (WBC) Count 9.8 thou/uL (4.8-10.8)
[2018-01-27 05:22] LABS: Anion Gap 12 mmol/L (10-20); BUN (Urea Nitrogen) 22 mg/dL (8.4-25.7); Calc. Creatinine Clearance 96 mL/min (70-130); Calcium 8.8 mg/dL (7.8-10.44); Carbon Dioxide 25 mmol/L (23-31); Chloride 103 mmol/L (98-107); Estimated GFR-MDRD Greater than 90; Glucose 93 mg/dL (80-115); Potassium 4.4 mmol/L (3.5-5.1); Sodium 136 mmol/L (136-145)
[2018-01-27] MEDS: Spironolactone 25 MG TAB PO SCH (09:23)
[2018-01-27] MEDS: Clopidogrel Bisulfate 75 MG TAB PO SCH (09:24)
[2018-01-27] MEDS: Lisinopril 5 MG TAB PO SCH ×2 (09:24→20:53)
[2018-01-27] MEDS: Carvedilol 3.125 MG TAB PO SCH ×2 (09:26→17:19)
[2018-01-27] MEDS: Cefdinir 300 MG CAP PO SCH (09:30)
[2018-01-27] MEDS: Famotidine 20 MG TAB PO SCH ×2 (09:30→20:53)
[2018-01-27] MEDS: Aspirin 81 mg Enteric Coated Tablet PO SCH (09:30)
[2018-01-27] MEDS: Docusate 100 MG CAP PO SCH ×2 (09:30→20:53)
[2018-01-27] MEDS: Enoxaparin Sodium 40 MG/0.4 ML SYRINGE SC SCH (09:31)
[2018-01-27] MEDS: Furosemide 40 MG/4 ML VIAL SLOW IVP SCH (09:31)
--- NOTE | 2018-01-27 13:33 | PDOC.PN ---
- Subjective Encounter Start Date: 01/27/18 Encounter Start Time: 13:32 Subjective: feels OK. no overnight events -: RN reports episodes of bradycardia in 40s w/o symptoms - Objective Resuscitation Status: Resuscitation Status FULL:Full Resuscitation MAR Reviewed: Yes Vital Signs & Weight: Vital Signs (12 hours) Temp Pulse Pulse Pulse BP BP BP 01/27/18 13:00 55 L 64 112/62 116/75 01/27/18 09:24 59 L 124/77 01/27/18 07:57 01/27/18 07:45 01/27/18 07:00 98.0 F 01/27/18 04:00 98.5 F 01/27/18 02:58 Pulse Ox Pulse Ox 01/27/18 13:00 96 01/27/18 09:24 01/27/18 07:57 96 01/27/18 07:45 94 L 01/27/18 07:00 01/27/18 04:00 01/27/18 02:58 95 Weight Admit Weight 161 lb 1.821 oz Weight 146 lb 9.718 oz Most Recent Monitor Data Heart Rate from ECG 58 NIBP 112/73 NIBP BP-Mean 86 Respiration from ECG 22 SpO2 94 I&O: 01/26/18 01/27/18 01/28/18 06:59 06:59 06:59 Intake Total 1183 1070 300 Output Total 1765 6235 1300 Balance -582 -2285 -1000 Result Diagrams: 01/27/18 04:41 01/27/18 04:41 Additional Labs: Microbiology 01/24/18 17:00 Urine rodriguez catheter Urine Culture - Final NO GROWTH AT 48 HOURS 01/24/18 17:13 Venous blood - Left Arm Blood Culture - Preliminary NO GROWTH AT 48 HOURS 01/24/18 17:09 Venous blood - Right Hand Blood Culture - Preliminary NO GROWTH AT 48 HOURS 01/22/18 12:41 Venous blood - Right Hand Blood Culture - Preliminary NO GROWTH AT 48 HOURS 01/22/18 12:32 Venous blood - Left Arm Blood Culture - Preliminary NO GROWTH AT 48 HOURS Phys Exam - Physical Examination Constitutional: NAD HEENT: PERRLA, moist MMs, sclera anicteric, oral pharynx no lesions Neck: no nodes, no JVD, supple, full ROM Respiratory: no wheezing, no rales, no rhonchi, clear to auscultation bilateral Cardiovascular: RRR, no significant murmur, no rub Gastrointestinal: soft, non-tender, no distention, positive bowel sounds Musculoskeletal: no edema, pulses present Neurological: non-focal, normal sensation, moves all 4 limbs Psychiatric: normal affect, A&O x 3 Skin: no rash Dx/Plan (1) Acute hypoxemic respiratory failure Code(s): J96.01 - ACUTE RESPIRATORY FAILURE WITH HYPOXIA Status: Acute Comment: Extubated 01/24 (2) Acute systolic CHF (congestive heart failure) Code(s): I50.21 - ACUTE SYSTOLIC (CONGESTIVE) HEART FAILURE Status: Acute Comment: EF 10-15%.improving.on Diuretics (3) PNA (pneumonia) Code(s): J18.9 - PNEUMONIA, UNSPECIFIED ORGANISM Status: Acute Comment: On PO ABx (4) Sepsis Code(s): A41.9 - SEPSIS, UNSPECIFIED ORGANISM Status: Acute (5) Hypomagnesemia Code(s): E83.42 - HYPOMAGNESEMIA Status: Acute (6) Cholelithiases Code(s): K80.20 - CALCULUS OF GALLBLADDER W/O CHOLECYSTITIS W/O OBSTRUCTION Status: Chronic Qualifiers: Cholelithiasis location: gallbladder Cholecystitis presence: without cholecystitis Biliary obstruction: without biliary obstruction Qualified Code(s): K80.20 - Calculus of gallbladder without cholecystitis without obstruction (7) Cardiomyopathy Code(s): I42.9 - CARDIOMYOPATHY, UNSPECIFIED Status: Chronic Qualifiers: Cardiomyopathy type: unspecified Qualified Code(s): I42.9 - Cardiomyopathy , unspecified Comment: DNR now. Cont Aldactone,lasix,ASA,BB.JUDE-I (8) CAD (coronary artery disease) Code(s): I25.10 - ATHSCL HEART DISEASE OF [place] CORONARY ARTERY W/O ANG PCTRS Status: Chronic Comment: on ASA,Plavix,BB,JUDE-I (9) H/O traumatic brain injury Code(s): Z87.820 - PERSONAL HISTORY OF TRAUMATIC BRAIN INJURY Status: Chronic - Plan continue antibiotics, respiratory therapy, incentive spirometry, out of bed/ ambulate, DVT proph w/SCDs Pt's sister wants him to be a DNR.discussed in detail -: Pt will not be candidate for Lifevest/AICD if DNR-defer to cardiology -: Bradycaric episodes multiple times-asymptomatic -: cont empiric ABx. HD stable. -: OK to transfer to [facility] for now.cont gentle lasix.Cont BB,aldactone,plavix, * . Review of Systems - Review of Systems Constitutional: weakness. negative: fever, chills, sweats, malaise, other Respiratory: negative: Cough, Dry, Shortness of Breath, Hemoptysis, SOB with Excertion, Pleuritic Pain, Sputum, Wheezing Cardiovascular: negative: chest pain, palpitations, orthopnea, paroxysmal nocturnal dyspnea, edema, light headedness, other Gastrointestinal: negative: Nausea, Vomiting, Abdominal Pain, Diarrhea, Constipation, Melena, Hematochezia, Other Genitourinary: negative: Dysuria, Frequency, Incontinence, Hematuria, Retention , Other Musculoskeletal: negative: Neck Pain, Shoulder Pain, Arm Pain, Back Pain, Hand Pain, Leg Pain, Foot Pain, Other Neurological: negative: Weakness, Numbness, Incoordination, Change in Speech, Confusion, Seizures, Other - Medications/Allergies Allergies/Adverse Reactions: Allergies Allergy/AdvReac Type Severity Reaction Status Date / Time No Known Drug Allergies Allergy Verified 01/21/18 21:06 Medications: Current Medications Acetaminophen (Tylenol) 650 mg PO Q6H PRN PRN Reason: Fever > 101 Last Admin: 01/24/18 17:30 Dose: 650 mg Al Hydroxide/Mg Hydroxide (Maalox) 30 ml PO Q6H PRN PRN Reason: Heartburn or Indigestion Alprazolam (Xanax) 0.25 mg PO Q6H PRN PRN Reason: Anxiety Last Admin: 01/26/18 20:04 Dose: 0.25 mg Aspirin (Ecotrin) 81 mg PO DAILY [facility] Last Admin: 01/27/18 09:30 Dose: 81 mg Calcium Carbonate (Tums) 1,000 mg PO Q4H PRN PRN Reason: Heartburn or Indigestion Carvedilol (Coreg) 3.125 mg PO BID-[facility] Last Admin: 01/27/18 09:26 Dose: 3.125 mg Cefdinir (Omnicef) 600 mg PO DAILY [facility] Last Admin: 01/27/18 09:30 Dose: 600 mg Clonidine (Catapres) 0.1 mg PO Q4H PRN PRN Reason: Systolic BP > 180 Clopidogrel Bisulfate (Plavix) 75 mg PO QAM [facility] Last Admin: 01/27/18 09:24 Dose: 75 mg Docusate Sodium (Colace) 100 mg PO BID [facility] Last Admin: 01/27/18 09:30 Dose: 100 mg Enoxaparin Sodium (Lovenox) 40 mg SC 0900 [facility] Last Admin: 01/27/18 09:31 Dose: 40 mg Famotidine (Pepcid) 20 mg PO BID [facility] Last Admin: 01/27/18 09:30 Dose: 20 mg Furosemide (Lasix) 40 mg SLOW IVP DAILY [facility] Last Admin: 01/27/18 09:31 Dose: 40 mg Potassium Chloride 40 meq/ (Sodium Chloride) 270 mls @ 135 mls/hr IVPB ASDIR PRN PRN Reason: FOR SERUM K+ 2.5 - 3.5 Potassium Chloride 40 meq/ (Device) 100 mls @ 50 mls/hr IVPB ASDIR PRN PRN Reason: FOR SERUM K+ 2.5 - 3.5 Last Admin: 01/25/18 12:16 Dose: 100 mls Magnesium Sulfate 1 gm/ Sodium (Chloride) 102 mls @ 102 mls/hr IV PRN PRN PRN Reason: MAG LEVEL 1.4 - 2.0 Last Admin: 01/23/18 10:51 Dose: 102 mls Magnesium Sulfate 2 gm/ Device 100 mls @ 100 mls/hr IVPB ASDIR PRN PRN Reason: MAGNESIUM < 1.4 Potassium Phosphate 9 mmol/ (Sodium Chloride) 103 mls @ 25.75 mls/hr IVPB ASDIR PRN PRN Reason: Phosphate 1.0-1.8 Potassium Phosphate 12 mmol/ (Sodium Chloride) 254 mls @ 63.5 mls/hr IV ASDIR PRN PRN Reason: Serum phosphate 0.5-0.9 Potassium Phosphate 15 mmol/ (Sodium Chloride) 255 mls @ 63.75 mls/hr IV ASDIR PRN PRN Reason: Serum Phos < 0.5 Lisinopril (Zestril) 5 mg PO BID [facility] Last Admin: 01/27/18 09:24 Dose: 5 mg Magnesium Oxide (Magnesium Oxide) 400 mg PO BIDPRN PRN PRN Reason: FOR SERUM MAG 1.4 - 2.0 Magnesium Oxide (Magnesium Oxide) 800 mg PO PRN PRN PRN Reason: FOR SERUM MAG < 1.4 Miscellaneous Medication (Phos-Nak) 1 pkt PO TIDPRN PRN PRN Reason: FOR PHOS LEVEL 1.0 - 1.8 Miscellaneous Medication (Phos-Nak) 2 pkt PO TIDPRN PRN PRN Reason: FOR PHOS LEVEL 0.5 - 1.0 Nitroglycerin (Nitrostat) 0.4 mg SL Q5MIN PRN PRN Reason: Chest Pain Potassium Chloride (K-Dur) 40 meq PO ASDIR PRN PRN Reason: FOR SERUM K+ 2.5 - 3.5 Last Admin: 01/25/18 06:28 Dose: 40 meq Potassium Chloride (Klor-Con) 40 meq PER TUBE ASDIR PRN PRN Reason: FOR SERUM K+ 2.5-3.5 Last Admin: 01/24/18 05:48 Dose: 40 meq Senna (Senokot) 2 tab PO HSPRN PRN PRN Reason: Constipation Sodium Chloride (Flush - Normal Saline) 10 ml IVF PRN PRN PRN Reason: Saline Flush Last Admin: 01/24/18 09:01 Dose: 10 ml Spironolactone (Aldactone) 50 mg PO [facility] Last Admin: 01/27/18 09:23 Dose: 50 mg
--- NOTE | 2018-01-27 16:34 | PRG ---
DATE OF SERVICE: 01/27/2018 SUBJECTIVE: Mr. Yoder is stable overnight. OBJECTIVE: VITAL SIGNS: His oximetry is 96% with blood pressure 112/52, heart rate is 55, respiratory rate is i n the teens. IN'S AND OUT'S: Intake and outputs negative 2285. LUNGS: Clear. HEART: Regular rhythm. ABDOMEN: Soft. EXTREMITIES: Without asymmetry. IMPRESSION: 1. Status post intubation for heart failure, clinically stable. 2. Severe cardiomyopathy. 3. Fever, now afebrile on p.o. antibiotics. 4. History of anxiety, depression, and panic attacks. 5. History of shoulder surgery. 6. History of myocardial infarction while he is incarcerated with? coronary stenting. 7. History of transient ischemic attack in the past. PLAN: Continue current therapy.
--- NOTE | 2018-01-27 18:46 | PDOC.CTH ---
Cardiology Progress Note - Subjective No new issues. - Objective Vital Signs Temp Pulse Pulse Pulse Resp BP BP 01/27/18 17:02 98.5 F 55 L 16 01/27/18 13:00 55 L 64 112/62 01/27/18 09:24 59 L 124/77 01/27/18 07:57 01/27/18 07:45 01/27/18 07:00 98.0 F BP BP Pulse Ox Pulse Ox 01/27/18 17:02 125/57 L 92 L 01/27/18 13:00 116/75 96 01/27/18 09:24 01/27/18 07:57 96 01/27/18 07:45 94 L 01/27/18 07:00 Admit Weight 161 lb 1.821 oz Weight 146 lb 9.718 oz 01/26/18 01/27/18 01/28/18 06:59 06:59 06:59 Intake Total 1183 1070 300 Output Total 1765 3355 1300 Balance -452 -8201 -1000 - Physical Examination General/Neuro: alert & oriented x3, NAD Neck: no JVD present Lungs: CTA, unlabored respirations Heart: RRR Abdomen: NT/ND Extremities: other: (no edema) - Telemetry Telemetry Rhythm: NSR - Labs Result Diagrams: 01/27/18 04:41 01/27/18 04:41 Troponin/CKMB CK-MB (CK-2) 1.8 ng/mL (0-6.6) 01/21/18 16:05 Troponin I 0.062 ng/mL (< 0.028) H 01/21/18 22:09 - Assessment/Plan 1.Acute on chronic systolic heart failure 2. Severe dilated CM 3. LVEF at 10-15% 4. Hypokalemia 5. CAD PLAN: - Will switch Lasix to PO. - Continue Spironolactone. - Monitor K. - On low dose BB.
[2018-01-27] MEDS: ALPRAZolam 0.25 MG TAB PO PRN (20:53)
[2018-01-28 05:53] LABS: #Basophils 0.1 thou/uL (0.0-0.2); #Eosinphils 0.2 thou/uL (0.0-0.7); #Lymphocytes 2.6 thou/uL (1.20-3.40); #Monocytes 1.1 thou/uL (0.11-0.59); #Neutrophils 5.5 thou/uL (1.40-6.50); %Basophils 1.3 % (0.0-1.0); %Eosinophils 1.9 % (0.0-10.0); %Lymphocytes 27.2 % (21.0-51.0); %Monocytes 11.2 % (0.0-10.0); %Neutrophils 58.4 % (42.0-75.0); Hemoglobin 14.6 g/dL (14.0-18.0); Mean Corpuscular HGB CONC 33.1 g/dL (32.0-36.0); Mean Corpuscular Hemoglobin 32.4 pg (27.0-31.0); Mean Corpuscular Volume 97.9 fL (78.0-98.0); Mean Platelet Volume 7.9 fL (7.4-10.4); Platelet Count 286 thou/uL (130-400); RBC Distribution Width 13.3 % (11.5-14.5); Red Blood Cell (RBC) Count 4.49 mill/uL (4.70-6.10); White Blood Cell (WBC) Count 9.5 thou/uL (4.8-10.8)
[2018-01-28 06:15] LABS: Anion Gap 14 mmol/L (10-20); BUN (Urea Nitrogen) 26 mg/dL (8.4-25.7); Calc. Creatinine Clearance 96 mL/min (70-130); Carbon Dioxide 22 mmol/L (23-31); Chloride 104 mmol/L (98-107); Estimated GFR-MDRD Greater than 90; Glucose 98 mg/dL (80-115); Phosphorus 3.9 mg/dL (2.3-4.7); Potassium 3.5 mmol/L (3.5-5.1); Sodium 136 mmol/L (136-145)
[2018-01-28] MEDS ORDERED: Furosemide 40 MG TAB PO SCH (07:30)
[2018-01-28] MEDS: Docusate 100 MG CAP PO SCH (07:55)
[2018-01-28] MEDS: Clopidogrel Bisulfate 75 MG TAB PO SCH (07:55)
[2018-01-28] MEDS: Spironolactone 25 MG TAB PO SCH (07:55)
[2018-01-28] MEDS: Enoxaparin Sodium 40 MG/0.4 ML SYRINGE SC SCH (07:55)
[2018-01-28] MEDS: Aspirin 81 mg Enteric Coated Tablet PO SCH (07:55)
[2018-01-28] MEDS: Carvedilol 3.125 MG TAB PO SCH (07:55)
[2018-01-28] MEDS: Cefdinir 300 MG CAP PO SCH (07:55)
[2018-01-28] MEDS: Lisinopril 5 MG TAB PO SCH (07:56)
[2018-01-28] MEDS: Famotidine 20 MG TAB PO SCH (07:56)
--- NOTE | 2018-01-28 10:38 | PRG ---
DATE OF SERVICE: 01/28/2018 The patient is doing well, had no complaints. PHYSICAL EXAMINATION: VITAL SIGNS: Temperature 97.7, pulse 81, respirations 16, O2 92% on room air. HEENT: Unremarkable. NECK: No JVD. CHEST: Clear without wheezing. CARDIAC: S1 and S2 regular. ABDOMEN: Soft. EXTREMITIES: No edema. LABORATORY DATA: White blood cell count 9.5, hematocrit 44, platelet count 286. Sodium 136, potassi um 3.5, BUN 26, creatinine 0.7, glucose 98. ASSESSMENT: 1. Congestive heart failure. 2. Status post endotracheal intubation for acute respiratory failure. PLAN: The patient is being medically managed with diuretics. He should continue antibiotics for a f ull 7 days and then that should be discontinued. I have no objection to him being discharged once th e plan is as of care is established. Pulmonary will sign off. Please recall if further assistance n eeded.
--- NOTE | 2018-01-28 12:24 | PDOC.PN ---
- Subjective Encounter Start Date: 01/28/18 Encounter Start Time: 12:22 Subjective: feels well. no new complaints.no overnight events - Objective Resuscitation Status: Resuscitation Status DNR:Do Not Resuscitate MAR Reviewed: Yes Vital Signs & Weight: Vital Signs (12 hours) Temp Pulse Pulse Pulse Resp BP BP 01/28/18 11:43 97.7 F 50 L 15 01/28/18 10:51 48 L 47 L 102/58 L 104/56 L 01/28/18 07:56 51 L 01/28/18 07:50 97.7 F 51 L 16 01/28/18 04:00 98.3 F 52 L 18 BP Pulse Ox 01/28/18 11:43 96/51 L 95 01/28/18 10:51 01/28/18 07:56 01/28/18 07:50 120/61 92 L 01/28/18 04:00 111/63 95 Weight Admit Weight 161 lb 1.821 oz Weight 143 lb Most Recent Monitor Data Heart Rate from ECG 58 NIBP 112/73 NIBP BP-Mean 86 Respiration from ECG 22 SpO2 94 I&O: 01/27/18 01/28/18 01/29/18 06:59 06:59 06:59 Intake Total 1070 780 Output Total 0497 7630 10 Balance -2285 -1770 -10 Result Diagrams: 01/28/18 05:35 01/28/18 05:35 Additional Labs: Microbiology 01/24/18 17:00 Urine rodriguez catheter Urine Culture - Final NO GROWTH AT 48 HOURS 01/22/18 12:41 Venous blood - Right Hand Blood Culture - Final NO GROWTH IN 5 DAYS 01/22/18 12:32 Venous blood - Left Arm Blood Culture - Final NO GROWTH IN 5 DAYS 01/24/18 17:13 Venous blood - Left Arm Blood Culture - Preliminary NO GROWTH AT 48 HOURS 01/24/18 17:09 Venous blood - Right Hand Blood Culture - Preliminary NO GROWTH AT 48 HOURS Phys Exam - Physical Examination Constitutional: NAD HEENT: PERRLA, moist MMs, sclera anicteric, oral pharynx no lesions Neck: no nodes, no JVD, supple, full ROM Respiratory: no wheezing, no rales, no rhonchi, clear to auscultation bilateral Cardiovascular: RRR, no significant murmur, no rub Gastrointestinal: soft, non-tender, no distention, positive bowel sounds Musculoskeletal: no edema, pulses present Neurological: non-focal, normal sensation, moves all 4 limbs Psychiatric: normal affect, A&O x 3 Skin: no rash Dx/Plan (1) Acute hypoxemic respiratory failure Code(s): J96.01 - ACUTE RESPIRATORY FAILURE WITH HYPOXIA Status: Acute Comment: Extubated 01/24 (2) Acute systolic CHF (congestive heart failure) Code(s): I50.21 - ACUTE SYSTOLIC (CONGESTIVE) HEART FAILURE Status: Acute Comment: EF 10-15%.improving.on Diuretics (3) PNA (pneumonia) Code(s): J18.9 - PNEUMONIA, UNSPECIFIED ORGANISM Status: Acute Comment: On PO ABx (4) Sepsis Code(s): A41.9 - SEPSIS, UNSPECIFIED ORGANISM Status: Acute (5) Hypomagnesemia Code(s): E83.42 - HYPOMAGNESEMIA Status: Acute (6) Cholelithiases Code(s): K80.20 - CALCULUS OF GALLBLADDER W/O CHOLECYSTITIS W/O OBSTRUCTION Status: Chronic Qualifiers: Cholelithiasis location: gallbladder Cholecystitis presence: without cholecystitis Biliary obstruction: without biliary obstruction Qualified Code(s): K80.20 - Calculus of gallbladder without cholecystitis without obstruction (7) Cardiomyopathy Code(s): I42.9 - CARDIOMYOPATHY, UNSPECIFIED Status: Chronic Qualifiers: Cardiomyopathy type: unspecified Qualified Code(s): I42.9 - Cardiomyopathy , unspecified Comment: DNR now. Cont Aldactone,lasix,ASA,BB.JUDE-I (8) CAD (coronary artery disease) Code(s): I25.10 - ATHSCL HEART DISEASE OF [place] CORONARY ARTERY W/O ANG PCTRS Status: Chronic Comment: on ASA,Plavix,BB,JUDE-I (9) H/O traumatic brain injury Code(s): Z87.820 - PERSONAL HISTORY OF TRAUMATIC BRAIN INJURY Status: Chronic - Plan continue antibiotics, PT/OT, DVT proph w/lovenox, DVT proph w/SCDs Pt DNR. would likley not qualify for Lifevest.Discussed w sister who agrees -: Pt w TBI & would not keep LV on either. -: Rehab accapeted the pt.hemodynamically stable -: Will DC if cleared by cardiology on PO Abx * . Review of Systems - Review of Systems Constitutional: negative: fever, chills, sweats, weakness, malaise, other ENT: negative: Ear Pain, Ear Discharge, Nose Pain, Nose Discharge, Nose Congestion, Mouth Pain, Mouth Swelling, Throat Pain, Throat Swelling, Other Respiratory: negative: Cough, Dry, Shortness of Breath, Hemoptysis, SOB with Excertion, Pleuritic Pain, Sputum, Wheezing Cardiovascular: negative: chest pain, palpitations, orthopnea, paroxysmal nocturnal dyspnea, edema, light headedness, other Gastrointestinal: negative: Nausea, Vomiting, Abdominal Pain, Diarrhea, Constipation, Melena, Hematochezia, Other Genitourinary: negative: Dysuria, Frequency, Incontinence, Hematuria, Retention , Other Musculoskeletal: negative: Neck Pain, Shoulder Pain, Arm Pain, Back Pain, Hand Pain, Leg Pain, Foot Pain, Other Skin: negative: Rash, Lesions, Ralph, Bruising, Other Neurological: negative: Weakness, Numbness, Incoordination, Change in Speech, Confusion, Seizures, Other - Medications/Allergies Allergies/Adverse Reactions: Allergies Allergy/AdvReac Type Severity Reaction Status Date / Time No Known Drug Allergies Allergy Verified 01/21/18 21:06 Medications: Current Medications Acetaminophen (Tylenol) 650 mg PO Q6H PRN PRN Reason: Fever > 101 Last Admin: 01/24/18 17:30 Dose: 650 mg Al Hydroxide/Mg Hydroxide (Maalox) 30 ml PO Q6H PRN PRN Reason: Heartburn or Indigestion Alprazolam (Xanax) 0.25 mg PO Q6H PRN PRN Reason: Anxiety Last Admin: 01/27/18 20:53 Dose: 0.25 mg Aspirin (Ecotrin) 81 mg PO DAILY [facility] Last Admin: 01/28/18 07:55 Dose: 81 mg Calcium Carbonate (Tums) 1,000 mg PO Q4H PRN PRN Reason: Heartburn or Indigestion [facility] Last Admin: 01/28/18 07:55 Dose: 3.125 mg Cefdinir (Omnicef) 600 mg PO DAILY [facility] Last Admin: 01/28/18 07:55 Dose: 600 mg Clonidine (Catapres) 0.1 mg PO Q4H PRN PRN Reason: Systolic BP > 180 Clopidogrel Bisulfate (Plavix) 75 mg PO QAM [facility] Last Admin: 01/28/18 07:55 Dose: 75 mg Docusate Sodium (Colace) 100 mg PO BID [facility] Last Admin: 01/28/18 07:55 Dose: 100 mg Enoxaparin Sodium (Lovenox) 40 mg SC 0900 [facility] Last Admin: 01/28/18 07:55 Dose: 40 mg Famotidine (Pepcid) 20 mg PO BID [facility] Last Admin: 01/28/18 07:56 Dose: 20 mg Furosemide (Lasix) 40 mg PO DAILY-[facility] Last Admin: 01/28/18 07:54 Dose: 40 mg Potassium Chloride 40 meq/ (Sodium Chloride) 270 mls @ 135 mls/hr IVPB ASDIR PRN PRN Reason: FOR SERUM K+ 2.5 - 3.5 Potassium Chloride 40 meq/ (Device) 100 mls @ 50 mls/hr IVPB ASDIR PRN PRN Reason: FOR SERUM K+ 2.5 - 3.5 Last Admin: 01/25/18 12:16 Dose: 100 mls Magnesium Sulfate 1 gm/ Sodium (Chloride) 102 mls @ 102 mls/hr IV PRN PRN PRN Reason: MAG LEVEL 1.4 - 2.0 Last Admin: 01/23/18 10:51 Dose: 102 mls Magnesium Sulfate 2 gm/ Device 100 mls @ 100 mls/hr IVPB ASDIR PRN PRN Reason: MAGNESIUM < 1.4 Potassium Phosphate 9 mmol/ (Sodium Chloride) 103 mls @ 25.75 mls/hr IVPB ASDIR PRN PRN Reason: Phosphate 1.0-1.8 Potassium Phosphate 12 mmol/ (Sodium Chloride) 254 mls @ 63.5 mls/hr IV ASDIR PRN PRN Reason: Serum phosphate 0.5-0.9 Potassium Phosphate 15 mmol/ (Sodium Chloride) 255 mls @ 63.75 mls/hr IV ASDIR PRN PRN Reason: Serum Phos < 0.5 Lisinopril (Zestril) 5 mg PO BID [facility] Last Admin: 01/28/18 07:56 Dose: 5 mg Magnesium Oxide (Magnesium Oxide) 400 mg PO BIDPRN PRN PRN Reason: FOR SERUM MAG 1.4 - 2.0 Magnesium Oxide (Magnesium Oxide) 800 mg PO PRN PRN PRN Reason: FOR SERUM MAG < 1.4 Miscellaneous Medication (Phos-Nak) 1 pkt PO TIDPRN PRN PRN Reason: FOR PHOS LEVEL 1.0 - 1.8 Miscellaneous Medication (Phos-Nak) 2 pkt PO TIDPRN PRN PRN Reason: FOR PHOS LEVEL 0.5 - 1.0 Nitroglycerin (Nitrostat) 0.4 mg SL Q5MIN PRN PRN Reason: Chest Pain Potassium Chloride (K-Dur) 40 meq PO ASDIR PRN PRN Reason: FOR SERUM K+ 2.5 - 3.5 Last Admin: 01/25/18 06:28 Dose: 40 meq Potassium Chloride (Klor-Con) 40 meq PER TUBE ASDIR PRN PRN Reason: FOR SERUM K+ 2.5-3.5 Last Admin: 01/24/18 05:48 Dose: 40 meq Senna (Senokot) 2 tab PO HSPRN PRN PRN Reason: Constipation Sodium Chloride (Flush - Normal Saline) 10 ml IVF PRN PRN PRN Reason: Saline Flush Last Admin: 01/27/18 20:53 Dose: 10 ml Spironolactone (Aldactone) 50 mg PO [facility] Last Admin: 01/28/18 07:55 Dose: 50 mg
[2018-01-28] MEDS: ALPRAZolam 0.25 MG TAB PO PRN (15:10)
[2018-01-28 15:14] VITALS: BP 112/56; TEMP 97
--- NOTE | 2018-01-29 01:57 | DIS ---
DATE OF ADMISSION: 01/21/2018 DATE OF DISCHARGE: 01/28/2018 DISCHARGE DISPOSITION: Inpatient rehabilitation to [place]. PRIMARY CARE PHYSICIAN: [facility] in [place]. DISCHARGE DIAGNOSES: 1. Acute hypoxic respiratory failure, resolved, status post endotracheal intubation and then extubat ion on 01/24/2018. 2. Acute systolic congestive heart failure, ejection fraction of 10-15%. 3. Pneumonia. 4. Sepsis secondary to pneumonia. 5. Hypomagnesemia, resolved. 6. Cholelithiasis without cholecystitis. 7. Cardiomyopathy suspected ischemic. 8. Coronary artery disease. 9. History of traumatic brain injury. DISCHARGE MEDICATIONS: As follows, clonidine 0.1 mg every 4 hours p.r.n. for systolic blood pressure more than 180, Aldactone 50 mg in the morning, Zoloft 150 mg at bedtime, potassium chloride 40 mEq d aily, nitroglycerin sublingual as needed, lisinopril 5 mg p.o. b.i.d., Lasix 40 mg daily, famotidine 20 mg p.o. b.i.d., Colace 100 mg p.o. b.i.d., Plavix 75 mg daily, Omnicef 600 mg p.o. daily for 7 mor e days, carvedilol 3.125 mg b.i.d., Tums p.r.n., aspirin 81 mg daily, Maalox p.r.n., Tylenol p.r.n., Xanax p.r.n. CODE STATUS: DO NOT RESUSCITATE or INTUBATE discussed with the patient's sister in detail, Ms. Pringle . INHOUSE CONSULTATIONS: Pulmonary Critical Care Medicine, Dr. Vale and Dr. Park. Cardiology, Dr. Childress and Dr. Chacko. PROCEDURES DONE IN THE HOSPITAL: 1. Transthoracic echocardiogram 01/22/2018, which is EF of 10-15% and normal size. Left atrium mode rately increased left ventricular size and diastolic dysfunction as well. 2. Cardiac catheterization on 01/22/2018. The cardiac cath showed 50% in-stent restenosis in the LA D and 70% stenosis on the first diagonal branch and 50% stenosis on the first obtuse marginal branch and 90% stenosis on the RCA RV branch. 3. Abdominal ultrasound on 01/23/2018 which shows cholelithiasis with distention of the gallbladder with wall thickening or pericholecystic fluid and normal CBD without any dilatation. HISTORY OF PRESENTING ILLNESS: Mr. Yoder is a 62-year-old male with known history of traumatic br ain injury as well as coronary artery disease status post [place] in 2013, anxiety, depression who present ed to the emergency room with complaints of chest discomfort. His EKG showed some nonspecific ST and T-wave changes in the lateral leads. He was given Lovenox at therapeutic dose and Lasix in the ER a s well as aspirin. He was also suspected to have sepsis secondary to community-acquired pneumonia as his chest x-ray showed a questionable infiltrate at the bases with leukocytosis. His troponins were elevated in the indeterminate range at 0.084 with normal CK-MB. BNP was 2100. Liver enzymes were a lso elevated with thrombocytopenia. Please see admission history and physical for further detail. HOSPITAL COURSE: Cardiology was consulted with regards to possible acute coronary syndrome. Dr. Mehul renner saw the patient, recommended a cardiac catheterization. This was done on 01/22/2018 followed b y an echocardiogram either prior or after to the cardiac catheterization. Cath results as above. Ec ho showed severe cardiomyopathy with EF of 10-15%. Unfortunately, shortly after the cardiac catheter ization, the patient developed respiratory distress and was intubated and transferred to the Critical Care Unit. He also developed high fever and noncardiogenic pulmonary edema. He was seen by Pulmonary Critical Care Medicine, Dr. Vale while in the critical care unit and was started on broad spectrum empiric IV antibiotics as well as diuresis. Cardiology follows along. Yajaira ntually, he was tapered off of mechanical ventilation and was extubated from then onwards, he did joseph y well. With regards to his low EF, he was started on appropriate prudent medication including aspir in, statin, beta blockers and JUDE inhibitors. He tolerated well except for some episodes of sinus br adycardia for which he was asymptomatic. He was continued on his Plavix as well. Initially, it was thought that he would be a good candidate for LifeVest, but the patient and his sis ter who takes care of him decided that they do not want any resuscitation. Ms. Pringle who takes care of him reported that she cannot have him back and he is not able to take care of the patient because of his progressive dementia and agitation. With this decision, LifeVest was dropped and the patient was evaluated for rehabilitation and was approved this morning. He has been cleared for discharge from pulmonary and cardiology standpoint. He has remained hemodyna mically stable throughout the last few days since I have been examining him. He was seen and examined prior to discharge this morning as well. Please see hospitalist's progress note from today's date for further details. His antibiotics were changed to oral, which he will cont inue over in the rehabilitation. Total time spent in the discharge of this patient 35 minutes.
== END 2018-01-28 16:42 | DRG 871 ==
LOC: ERS 15:45 → 2NO 20:40 → CCU 01-22 22:35 → 2NO 01-27 11:40
PROVIDERS: ADMIT Internal Medicine; ATTEND Internal Medicine
PROC: 4A023N7 Measurement of Cardiac Sampling and Pressure, Left Heart, Percutaneous Approach (ICD-10-PCS; principal; 2018-01-22)
PROC: B2111ZZ Fluoroscopy of Multiple Coronary Arteries using Low Osmolar Contrast (ICD-10-PCS; 2018-01-22)
PROC: B2151ZZ Fluoroscopy of Left Heart using Low Osmolar Contrast (ICD-10-PCS; 2018-01-22)
PROC: 05HN33Z Insertion of Infusion Device into Left Internal Jugular Vein, Percutaneous Approach (ICD-10-PCS; 2018-01-23)
PROC: 0BH17EZ Insertion of Endotracheal Airway into Trachea, Via Natural or Artificial Opening (ICD-10-PCS; 2018-01-23)
PROC: 5A1945Z Respiratory Ventilation, 24-96 Consecutive Hours (ICD-10-PCS; 2018-01-23)
DX: A41.9 Sepsis, unspecified organism (principal); J18.9 Pneumonia, unspecified organism; J96.01 Acute respiratory failure with hypoxia; I50.21 Acute systolic (congestive) heart failure; A52.17 General paresis; E83.42 Hypomagnesemia; I25.10 Atherosclerotic heart disease of native coronary artery without angina pectoris; I25.5 Ischemic cardiomyopathy; K80.20 Calculus of gallbladder without cholecystitis without obstruction; Z66 Do not resuscitate; I25.2 Old myocardial infarction; F17.220 Nicotine dependence, chewing tobacco, uncomplicated; E87.6 Hypokalemia; F41.9 Anxiety disorder, unspecified; Z86.73 Personal history of transient ischemic attack (TIA), and cerebral infarction without residual deficits; E78.5 Hyperlipidemia, unspecified; I11.0 Hypertensive heart disease with heart failure; Z87.820 Personal history of traumatic brain injury
CPT/HCPCS: 36415; 71045; 71046; 76705; 80048; 80053; 80202; 81001; 82553; 82805; 83605; 83690; 83735; 83880; 84100; 84145; 84484; 85025; 85610; 85730; 86140; 87040; 87086; 93005; 93010; 93306; 93458; 93798; 94002; 94003; 94760; 96372; 96374; 99152; C1769; J0282; J0696; J1250; J1644; J1650; J1940; J2001; J2250; J2270; J2543; J2704; J3010; J3370; J3475; J3480; J7050; J7070

== ENCOUNTER 2018-02-10 21:29 | Observation (INO) | payer MEDICARE ==
[2018-02-10 21:56] LABS: #Basophils 0.1 thou/uL (0.0-0.2); #Eosinphils 0.1 thou/uL (0.0-0.7); #Lymphocytes 2.9 thou/uL (1.20-3.40); #Neutrophils 3.3 thou/uL (1.40-6.50); %Basophils 1.2 % (0.0-1.0); %Eosinophils 1.2 % (0.0-10.0); %Neutrophils 44.6 % (42.0-75.0); Hemoglobin 13.3 g/dL (14.0-18.0); Mean Corpuscular HGB CONC 32.8 g/dL (32.0-36.0); Mean Corpuscular Hemoglobin 32.1 pg (27.0-31.0); Mean Corpuscular Volume 97.8 fL (78.0-98.0); Mean Platelet Volume 8.9 fL (7.4-10.4); Platelet Count 207 thou/uL (130-400); RBC Distribution Width 12.9 % (11.5-14.5); Red Blood Cell (RBC) Count 4.14 mill/uL (4.70-6.10); White Blood Cell (WBC) Count 7.3 thou/uL (4.8-10.8)
[2018-02-10 22:14] LABS: ALT (SGPT) 56 U/L (8-55); AST (SGOT) 68 U/L (5-34); Albumin 3.4 g/dL (3.4-4.8); Alkaline Phosphatase 82 U/L (40-150); Anion Gap 12 mmol/L (10-20); BUN (Urea Nitrogen) 26 mg/dL (8.4-25.7); Bilirubin, Total 0.6 mg/dL (0.2-1.2); Calc. Creatinine Clearance 0 mL/min (70-130); Calcium 9.2 mg/dL (7.8-10.44); Carbon Dioxide 25 mmol/L (23-31); Chloride 103 mmol/L (98-107); Estimated GFR-MDRD 61; Globulin 3.8 g/dL (2.4-3.5); Glucose 85 mg/dL (80-115); Potassium 3.7 mmol/L (3.5-5.1); Protein, Total 7.2 g/dL (5.8-8.1); Sodium 136 mmol/L (136-145)
[2018-02-10 22:15] LABS: Acetaminophen Less than 6.0 mcg/mL (10.0-30.0); Alcohol Less than 10 mg/dL (Less than 10); Salicylate Less than 8.0 mg/dL (15.0-30.0)
[2018-02-10 22:40] LABS: Bilirubin Negative (Negative); Blood, Urine Negative (Negative); Clarity CLEAR (Clear); Glucose, Urine (Dipstick) Negative (Negative); Leukocyte Negative (Negative); Nitrite Negative (Negative); Protein, Urine (Dipstick) Negative (Neg-Trace); Specific Gravity, Urine 1.014 (1.002-1.036)
--- NOTE | 2018-02-10 22:45 | CT ---
CT OF BRAIN PERFORMED WITHOUT CONTRAST ENHANCEMENT: History: Altered mental status. Confusion. Hypotension. FINDINGS: Some generalized ventricular and sulcal prominence. There are no signs of intracerebral hemorrhage or extraaxial fluid collections. The mastoid air cells and visualized sinuses are clear. IMPRESSION: No acute intracranial abnormalities. POS: [facility]
[2018-02-10 22:50] LABS: Amphetamine Not Detected (NotDetected); Barbiturates Screen Not Detected (NotDetected); Benzodiazepine Screen Detected (NotDetected); Cocaine Metabolite Screen Not Detected (NotDetected); Medtox Control Line Valid? VALID (VALID); Medtox Reader # READER 1; Methadone Not Detected (NotDetected); Methamphetamine Not Detected (NotDetected); Opiate Screen Not Detected (NotDetected); Oxycodone Screen Not Detected (NotDetected); Phencyclidine (PCP) Not Detected (NotDetected); THC/Cannabinoid Screen Not Detected (NotDetected); Tricyclic Screen Not Detected (NotDetected)
[2018-02-10] MEDS ORDERED: Lorazepam 2 MG/ML VIAL ONE (23:30)
[2018-02-11 01:59] VITALS: BMI 22.0
[2018-02-11] MEDS: Aspirin 81 mg Enteric Coated Tablet PO SCH (09:43)
[2018-02-11] MEDS ORDERED: Carvedilol 3.125 MG TAB PO SCH (09:45)
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
[2018-02-11] MEDS ORDERED: Iopamidol 370 76% 100 ML VIAL ONE (10:10)
--- NOTE | 2018-02-11 13:11 | CT ---
CTA CAROTID AND BRAIN: HISTORY: Stroke, multiple falls. FINDINGS: Noncontrast-enhanced CT images of the brain are unremarkable. CTA brain performed. Two-D and 3D reconstructed images performed on an independent 3D work station. Intracranial CTA is unremarkable. VICKI, MCA, and L[employer] vessels are patent. Minimal atherosclerotic plaque calcified and noncalcified seen in the right and left internal carotid arteries. Some calcifications are seen in the aortic arch. No significant evidence of great vessel stenosis se en. The patient has dominant left vertebral artery which is patent. The right vertebral artery is a lso patent but smaller. Some diffuse airspace opacity is seen in the central right and left upper lobes. IMPRESSION: Minimal bilateral proximal internal carotid artery calcified plaques without evidence of significant stenosis. No other significant occlusive vascular disease seen. POS: [facility]
--- NOTE | 2018-02-11 14:43 | MRI ---
MRI BRAIN WITHOUT CONTRAST: Date: 02/11/18 HISTORY: Altered mental status. Confusion. Hypotension. Transient brain ischemic. COMPARISON: None. FINDINGS: No hemorrhage on the axial gradient echo sequence. Calvarium has a normal T1 marrow signal intensity. Midline brain parenchymal structures are unremarka ble. Central arterial flow-voids are maintained. Absent restricted diffusion. Minimal T2 and FLAIR white matter hyperintensities due to chronic small vessel ischemic change. No parenchymal mass, mass effect, or midline shift. Brain volume is age-appropriate. Cortical lubin-wh ite matter differentiation preserved. No evidence of hydrocephalus. Adequate aeration of the sinuses and mastoid air cells. IMPRESSION: Absent restricted diffusion. No acute infarct. POS: [facility]
[2018-02-11] MEDS: Carvedilol 3.125 MG TAB PO SCH (17:45)
[2018-02-11] MEDS: Atorvastatin Calcium 10 MG TAB PO SCH ×2 (20:28→20:41)
[2018-02-12] MEDS: Spironolactone 100 MG TAB PO SCH (09:15)
[2018-02-12] MEDS: Furosemide 20 MG TAB PO SCH (09:15)
[2018-02-12] MEDS: Aspirin 81 mg Enteric Coated Tablet PO SCH (09:15)
[2018-02-12] MEDS: Carvedilol 3.125 MG TAB PO SCH ×2 (09:15→18:47)
[2018-02-12] MEDS: Clopidogrel Bisulfate 75 MG TAB PO SCH ×2 (09:15→10:01)
--- NOTE | 2018-02-12 18:38 | PRG ---
DATE OF SERVICE: 02/12/2018 SUBJECTIVE: The patient states he feels okay, has no specific complaints. PHYSICAL EXAMINATION: VITAL SIGNS: Temperature 97.4, pulse 48-65, respirations 16, O2 sat 99%, blood pressure 140/78. GENERAL APPEARANCE: Age appropriate male, in no distress. He is awake, alert, oriented, pleasant, c ooperative, has some persistent mild psychomotor delay. HEART: Regular rate and rhythm without murmurs. LUNGS: Clear bilaterally. ABDOMEN: Soft, nontender, nondistended. EXTREMITIES: Warm and dry. Results of the echocardiogram revealed ejection fraction is slightly improved at 25%-30% with some ev idence of global hypokinesis and suspected diastolic dysfunction. IMPRESSION AND PLAN: 1. Adverse reaction to excess consumption of alprazolam resulting in some altered mental status. At this point, the patient has had a negative workup including a normal prolactin level, normal MRI of the brain, normal CT of the brain, normal CT angiogram of the head and neck. The patient was positiv e for the alprazolam and he was trying to control these himself. It appears as though he likely over utilize these causing his current problem. 2. History of cardiomyopathy. The patient previously had an EF of 10%-15%. He is now up to 25%-30% . He appears to be stable on his current medical regimen. He has declined LifeVest previously. We will continue with his current regimen. He understands that at some point in the future, he may qual garima for AICD if he chooses to pursue that. DISPOSITION: The patient has been living with his sister. She is no longer comfortable with that ar rangement. I have discussed this with the patient at length this morning. He is considering some po ssible rehab options. I have discussed this at length with case management in working on disposition plans.
[2018-02-12] MEDS: Atorvastatin Calcium 10 MG TAB PO SCH (20:16)
[2018-02-13] MEDS: Spironolactone 100 MG TAB PO SCH (09:55)
[2018-02-13] MEDS: Carvedilol 3.125 MG TAB PO SCH ×2 (09:55→18:40)
[2018-02-13] MEDS: Aspirin 81 mg Enteric Coated Tablet PO SCH (09:55)
[2018-02-13] MEDS: Furosemide 20 MG TAB PO SCH (09:55)
[2018-02-13] MEDS: Clopidogrel Bisulfate 75 MG TAB PO SCH (09:56)
--- NOTE | 2018-02-13 10:35 | PRG ---
DATE OF SERVICE: 02/13/2018 SUBJECTIVE: The patient says he feels fine, has been up and walking. OBJECTIVE: VITAL SIGNS: Temperature 97.8, pulse 47-59, respirations 18, O2 saturation 98% on room air, BP 112/6 8. GENERAL APPEARANCE: Age-appropriate male in no distress. He has some psychomotor delay, but general ly appropriate. HEART: Bradycardic, but regular, without murmurs. LUNGS: Clear bilaterally. No wheezes or rales. ABDOMEN: Benign. EXTREMITIES: Warm and dry. IMPRESSION AND PLAN: 1. Altered mentation secondary to alprazolam, with otherwise negative workup, as he appears to be re solved and back to his baseline. Unfortunately, the patient is currently faced with not having a goo d living situation. He was recently coming out of rehabilitation and living with his sister, working on that with case management now. 2. History of cardiomyopathy. Recent echocardiogram with ejection fraction of 25%-30%. The patient may, at some point, be a candidate for automatic implantable cardioverter-defibrillator, but has dec lined LifeVest and his sister has felt like he would not be able to manage it well, regardless, so at is being held for now. 3. History of traumatic brain injury. 4. History of stroke with some mild psychomotor delay. Appears to be at his baseline.
[2018-02-13] MEDS: Atorvastatin Calcium 10 MG TAB PO SCH (20:44)
[2018-02-14 05:21] LABS: ALT (SGPT) 57 U/L (8-55); AST (SGOT) 66 U/L (5-34); Albumin 3.4 g/dL (3.4-4.8); Alkaline Phosphatase 78 U/L (40-150); Anion Gap 10 mmol/L (10-20); BUN (Urea Nitrogen) 24 mg/dL (8.4-25.7); Bilirubin, Total 0.7 mg/dL (0.2-1.2); Calc. Creatinine Clearance 94 mL/min (70-130); Calcium 9.2 mg/dL (7.8-10.44); Carbon Dioxide 27 mmol/L (23-31); Chloride 105 mmol/L (98-107); Estimated GFR-MDRD Greater than 90; Globulin 3.9 g/dL (2.4-3.5); Glucose 94 mg/dL (80-115); Potassium 4.1 mmol/L (3.5-5.1); Protein, Total 7.3 g/dL (5.8-8.1); Sodium 138 mmol/L (136-145)
[2018-02-14] MEDS: Clopidogrel Bisulfate 75 MG TAB PO SCH (08:04)
[2018-02-14] MEDS: Aspirin 81 mg Enteric Coated Tablet PO SCH (08:04)
[2018-02-14] MEDS: Spironolactone 100 MG TAB PO SCH (08:04)
[2018-02-14] MEDS: Carvedilol 3.125 MG TAB PO SCH (08:04)
[2018-02-14] MEDS: Furosemide 20 MG TAB PO SCH (08:04)
[2018-02-14 16:08] VITALS: BP 124/83; TEMP 98.5
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
== END 2018-02-14 16:09 ==
LOC: ERS 21:29 → 2SE 23:15
PROVIDERS: ADMIT Hospitalist; ATTEND Hospitalist
DX: R41.82 Altered mental status, unspecified (principal); T42.4X5A Adverse effect of benzodiazepines, initial encounter; I25.2 Old myocardial infarction; I42.8 Other cardiomyopathies; I69.313 Psychomotor deficit following cerebral infarction; I25.10 Atherosclerotic heart disease of native coronary artery without angina pectoris; F10.21 Alcohol dependence, in remission; Z87.820 Personal history of traumatic brain injury; Z79.02 Long term (current) use of antithrombotics/antiplatelets; Z79.82 Long term (current) use of aspirin; Z79.899 Other long term (current) drug therapy
CPT/HCPCS: 70450; 70496; 70498; 70551; 80053 ×2; 80306; 80307; 81003; 82962; 84146; 84443; 85025; 93005; 93306; 96374; 97139 ×3; 99285; G0378 ×2; G8978; G8979; G8980; 36415; 36416; J2060

== ENCOUNTER 2019-07-09 14:03 | Emergency (ER) | payer MEDICARE, MEDICAID ==
[2019-07-09 19:22] LABS: #Eosinphils 0.1 thou/uL (0.0-0.7); #Lymphocytes 1.7 thou/uL (1.20-3.40); #Monocytes 0.4 thou/uL (0.11-0.59); #Neutrophils 2.8 thou/uL (1.40-6.50); %Basophils 0.2 % (0.0-1.0); %Eosinophils 1.8 % (0.0-10.0); %Lymphocytes 34.3 % (21.0-51.0); %Monocytes 8.6 % (0.0-10.0); Hemoglobin 13.8 g/dL (14.0-18.0); Mean Corpuscular HGB CONC 34.3 g/dL (32.0-36.0); Mean Corpuscular Hemoglobin 32.5 pg (27.0-31.0); Mean Corpuscular Volume 94.7 fL (78.0-98.0); Mean Platelet Volume 9.9 fL (7.4-10.4); Platelet Count 109 thou/uL (130-400); RBC Distribution Width 13.1 % (11.5-14.5); Red Blood Cell (RBC) Count 4.24 mill/uL (4.70-6.10); White Blood Cell (WBC) Count 5.1 thou/uL (4.8-10.8)
[2019-07-09 19:41] LABS: ALT (SGPT) 41 U/L (8-55); AST (SGOT) 35 U/L (5-34); Albumin 3.6 g/dL (3.4-4.8); Alkaline Phosphatase 57 U/L (40-110); Anion Gap 10 mmol/L (10-20); BUN (Urea Nitrogen) 15 mg/dL (8.4-25.7); Calc. Creatinine Clearance 0 mL/min (70-130); Calcium 8.5 mg/dL (7.8-10.44); Carbon Dioxide 25 mmol/L (23-31); Chloride 109 mmol/L (98-107); Estimated GFR-MDRD Greater than 90; Globulin 3.4 g/dL (2.4-3.5); Glucose 91 mg/dL (80-115); Potassium 3.4 mmol/L (3.5-5.1); Sodium 141 mmol/L (136-145)
--- NOTE | 2019-07-09 20:12 | ULT ---
ULTRASOUND OF CHEST WALL: 07/09/19 HISTORY: Defibrillator was placed on 06/27/19. Patient has developed redness and swelling around the incision s ite. Scanning was performed at the level of the incision and the technologist states just lateral to the a cande of distention extending towards the axillary region. This shows a fluid collection measuring 2 x 7 cm in size. Thin echogenic line within it is probably related to a wire related to the defibrillato r. IMPRESSION: Complex 2 x 7 cm fluid collection just at the incision and lateral to the incision site. This could r epresent an infected fluid collection. POS: [facility]
== END 2019-07-09 22:44 ==
LOC: ERS 14:03
DX: I97.638 Postprocedural hematoma of a circulatory system organ or structure following other circulatory system procedure (principal); D50.9 Iron deficiency anemia, unspecified; E78.5 Hyperlipidemia, unspecified; F03.90 Unspecified dementia, unspecified severity, without behavioral disturbance, psychotic disturbance, mood disturbance, and anxiety; Z86.73 Personal history of transient ischemic attack (TIA), and cerebral infarction without residual deficits; I25.2 Old myocardial infarction; F31.9 Bipolar disorder, unspecified; Z87.891 Personal history of nicotine dependence; Z79.82 Long term (current) use of aspirin; Z79.899 Other long term (current) drug therapy
CPT/HCPCS: 36415; 80053; 83605; 85025; 87040